=== PATIENT | female | born 1965 | race Caucasian/White ===

== ENCOUNTER 2020-08-08 08:56 | Outpatient (REF) | payer OTHER, SELFPAY ==
[2020-08-08 09:28] LABS: Hemoglobin 11.9 g/dl (12.0-16.0); Mean Corpuscular HGB Conc 31.3 g/dl (31.0-35.0); Mean Corpuscular Hemoglobin 27.2 pg (27.0-33.0); Mean Platelet Volume 10.5 fL (9.4-12.3); Platelet Count 307 X10*3/uL (160-400); Red Blood Count 4.37 X10*6/uL (4.20-5.50); Red Cell Distribution Width 14.6 % (11.0-16.0); White Blood Count 4.8 X10*3/uL (4.8-10.8)
[2020-08-08 09:51] LABS: Alanine Aminotransferase 19 U/L (0-31); Alkaline Phosphatase 73 U/L (39-117); Anion Gap 11 (12-20); Aspartate Amino Transferase 19 U/L (5-31); Bilirubin Total 0.3 mg/dL (0.0-1.0); Blood Urea Nitrogen 13 mg/dL (9-16); Calcium 8.8 mg/dL (8.4-10.2); Carbon Dioxide 31 mmol/L (22-29); Chloride 107 mmol/L (96-108); Cholesterol 207 mg/dL; Estimated Glomerular Filt Rate > 60; Glucose Fasting 112 mg/dL (60-99); HDL Cholesterol 43 mg/dL; LDL Cholesterol Calculated 150 mg/dl; Potassium 4.5 mmol/l (3.3-5.1); Sodium 144 mmol/L (135-145); Total Protein 6.9 g/dL (6.5-8.0); Triglycerides 70 mg/dL
[2020-08-08 10:03] LABS: Creatinine Urine 253.77 mg/dL; Microalbum/Creatinine Ratio Ur 5.9 ug/mg cr
[2020-08-08 10:12] LABS: TSH reflex Free T4 0.58 mIU/mL (0.32-4.0)
== END 2020-08-08 08:57 | disposition home or self-care (01) ==
LOC: HO.LAB 08:56
PROVIDERS: PCP Physician Assistant; Visit Provider Physician Assistant
DX: I10 Essential (primary) hypertension (principal); E03.9 Hypothyroidism, unspecified
CPT/HCPCS: 36415; 80053; 80061; 82043; 84443; 85027

== ENCOUNTER 2022-04-29 08:14 | Outpatient (REF) | payer BC, SELFPAY ==
[2022-04-29 09:12] LABS: Hematocrit 39.2 % (37.0-47.0); Hemoglobin 12.3 g/dl (12.0-16.0); Mean Corpuscular HGB Conc 31.4 g/dl (31.0-35.0); Mean Corpuscular Hemoglobin 27.3 pg (27.0-33.0); Mean Corpuscular Volume 87.1 fL (80.0-98.0); Mean Platelet Volume 10.7 fL (9.4-12.3); Platelet Count 277 X10*3/uL (160-400); Red Cell Distribution Width 14.8 % (11.0-16.0); White Blood Count 4.9 X10*3/uL (4.8-10.8)
[2022-04-29 10:05] LABS: Folate 11.2 ng/mL (> or = 4.0); Vitamin B12 182 pg/mL (200-900)
== END 2022-04-29 08:15 | disposition home or self-care (01) ==
LOC: HO.LAB 08:14
PROVIDERS: Visit Provider Physician Assistant
DX: E53.8 Deficiency of other specified B group vitamins (principal); R20.2 Paresthesia of skin
CPT/HCPCS: 36415; 82607; 82746; 85027

== ENCOUNTER 2022-08-15 11:10 | Outpatient (REF) | payer BC, SELFPAY ==
--- NOTE | ~2022-08-15 | MM_ITS ---
EXAMINATION: MM SCREENING DIGITAL BREAST TOMOSYNTHESIS, BILATERAL CLINICAL INFORMATION: Screening. Asymptomatic. The lifetime risk of breast cancer based on the Tyrer-Cuzick Model is 14%. COMPARISON: Outside mammography: 05/21/2012, 08/20/2008 ([facility]) TECHNIQUE: Digital breast tomosynthesis is performed in both the craniocaudal and mediolateral oblique views along with computer-aided detection (CAD). Synthesized 2D images are generated from the tomosynthesis. FINDINGS: The breasts are almost entirely fatty (ACR BI-RADS breast composition Category a). There are no significant masses, abnormal calcifications, or other abnormalities. Background stromal markings are normal. No developing density or architectural abnormality. Incidental tightly grouped dermal calcifications anterior inferior left breast. Incidental intramammary node posterior upper outer right breast again seen. The skin contours are smooth. No significant changes. MM/MM tomosynthesis screening BI IMPRESSION: No mammographic evidence of malignancy. ASSESSMENT: BI-RADS 2: Benign RECOMMENDATION: Routine annual mammography screening. This patient's information was entered into a reminder system with a target due date for their next mammogram.
== END 2022-08-15 11:11 | disposition home or self-care (01) ==
LOC: HO.MAMMO 11:10
PROVIDERS: PCP Physician Assistant; Visit Provider Physician Assistant
DX: Z12.31 Encounter for screening mammogram for malignant neoplasm of breast (principal)
CPT/HCPCS: 77063; 77067

== ENCOUNTER 2022-08-25 14:11 | Outpatient (REF) | payer BC, SELFPAY ==
--- NOTE | 2022-08-25 08:45 | EMG_ITS ---
Left tibial and peroneal motor studies were performed. Left superficial peroneal and sural sensory studies were performed. Tibial H-reflex was obtained, and median and lateral plantar sensory studies were performed. Needle examination was performed. IMPRESSION: 1. Left mid to lower lumbar radiculopathy. 2. 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 3. 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 MD GOMEZ Menjivar/TOSHIA / [id number]
== END 2022-08-25 14:12 | disposition home or self-care (01) ==
LOC: HO.NEURO 14:11
PROVIDERS: Visit Provider Physician Assistant
DX: R20.2 Paresthesia of skin (principal)
CPT/HCPCS: 95886; 95910

== ENCOUNTER → 2022-09-23 11:07 | Outpatient (BNVA) | payer BC, SELFPAY | PROVIDERS: PCP Physician Assistant; Visit Provider Nurse Practitioner Family | DX: Z13.89 Encounter for screening for other disorder (principal) ==

== ENCOUNTER 2022-11-28 08:00 | Outpatient (RCR) | payer BC, SELFPAY ==
--- NOTE | 2022-11-16 08:44 | MHC.PT.EP ---
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 Pt HAS A H/O DIMAS LEs VASCULAR PROCEDURE APPROX 2 YRS AGO. OBJECTIVELY, Pt HAS DECR POSTURAL AWARENESS, LIMITED TRUNK AND HIP AROM/ TIGHT PSOAS AND CALF MM, (+) THORACOLS PS MM TISSUE TENSION, AND INTERMITTENT DIMAS LB ACHINESS. SHE HAS DECR BARB TO SL, PHYSICALLY DEMANDING TASKS, BENDING, AND PROLONGED SITTING. SHE CURRENTLY DENIES SENSORIMOTOR DEFICITS. Pt WOULD BENEFIT FROM PT TO ADDRESS THE ABOVE FINDINGS, PAIN MGMT, DEV A HEP/SX MGMT STRATEGIES, AND IMPROVE HIP FLEXIBILITY FOR MORE EFFICIENT BODY MECHANICS. Frequency and Duration: The patient will be seen 2 x WK x 8 WKS Short Term Goals: *Pt INDEP W SELF-CORRECT POSTURE AND DEMON IMPROVED, MORE EFFICIENT BODY MECH W SIMUL ADLs/ WORK TASKS *DECR LBP TO 2-3/10 W REG ADLs/ WORK *IMPROVE HIP FLEXIBILITY AND TRUNK AROM * INTIATE HEP Group Home Goals: *Pt WILL IMPROVE LUMBOPELVIC/ LEs STRENGTH TO AT LEAST 5-/5 *Pt RESUME REG ADLs AND FITNESS ROUTINE EVIDENT W IMPROVED OSWESTRY SCORE (AT EVAL 50 ) *Pt INDEP W PROGR HEP AND SELF-SX MGMT TECHN Treatment Plan: Modalities to reduce pain, spasms and effusion. Manual therapy to restore motion and function. Therapeutic exercise to improve strength and flexibility. Neuromuscular re-education for posture and balance. Therapeutic activities to return to functional activities of daily living. Electronically signed by: DARY LAKE,PT Please sign and return to therapist. Thank you for your referral.
--- NOTE | 2023-02-03 13:36 | MHC.PT.DC ---
[facility] [place] Office [place] Office [place] Office [address] [phone] F: [phone] F: [phone] F: [phone] F: [phone] Physical Therapy Discharge Report Diagnosis: THORACOLUMBAR AND LUMBOSACRAL INTERVERTEBRAL DISC Date of Surgery: Date of Evaluation: 11/16/22 Date of Discharge: 02/03/23 Treatments to Date: 4 Cancellations to Date: 2 No Shows to Date: 1 Discharge Status: Improved Function Independent with HEP Patient Elected to Stop Discharge Summary: THE Pt BENEFITTED FROM PT TO ADDRESS POSTURE/ BODY MECH, EASE TISSUE TENSION AND DEV A HEP FOR LUMBOPELVIC STAB AND STRENGTH. SHE DID NOT ATTEND LAST FEW SCHED APPTS AND IS D/C PER DEPT POLICY. Electronically signed by: DARY LAKE,PT Please sign and return to therapist. Thank you for your referral.
== END 2023-02-03 13:37 | disposition home or self-care (01) ==
LOC: HO.PT 08:00
PROVIDERS: PCP Physician Assistant; Visit Provider Physician Assistant
DX: M51.9 Unspecified thoracic, thoracolumbar and lumbosacral intervertebral disc disorder (principal)
CPT/HCPCS: 97140; 97162; 97530

== ENCOUNTER 2022-11-28 08:43 | Outpatient (REF) | payer BC, SELFPAY ==
--- NOTE | ~2022-11-28 | MR_ITS ---
EXAMINATION: MR LUMBAR SPINE WITHOUT CONTRAST CLINICAL INFORMATION: Intervertebral disc disorder with radiculopathy, lumbar region. COMPARISON: None TECHNIQUE: MRI of the lumbar spine was obtained using routine sequences without contrast. FINDINGS: The lumbar vertebral bodies maintain normal heights and alignment. There is severe disc height loss at L4-L5 and L5-S1 mild amount of endplate edema is seen at L4-L5 and L5-S1. The distal spinal cord appears normal. The conus medullaris terminates normally at L2. Nonenlarged retroperitoneal lymph nodes are noted. The extraspinal soft tissues are otherwise unremarkable. SPINAL LEVELS: L1-L2: No posterior disc abnormality. No spinal canal or neural foraminal stenosis. L2-L3: No posterior disc abnormality. No spinal canal or neural foraminal stenosis. L3-L4: Disc bulging with central protrusion resulting in mild indentation the ventral thecal sac but no spinal canal stenosis. No neural foraminal stenosis. L4-L5: Disc bulging with left subarticular protrusion resulting in mild compression of the traversing left L5 nerve root. Mild to moderate facet arthropathy. No spinal canal stenosis. Mild to moderate bilateral neural foraminal stenosis. L5-S1: Disc bulging with moderate facet arthropathy. No spinal canal stenosis. Mild right and moderate left neural foraminal stenosis. MR/MR lumbar spine wo con IMPRESSION: 1. At L4-L5 there is left subarticular protrusion resulting in mild compression of the traversing left L5 nerve root. Mild to moderate bilateral neural foraminal stenosis. 2. At L5-S1 there is mild right and moderate left neural foraminal stenosis.
--- NOTE | ~2022-11-28 | XR_ITS ---
EXAMINATION: XR LUMBOSACRAL SPINE CLINICAL INFORMATION: Anemia. COMPARISON: Portions of the MRI lumbar spine dated 11/28/2022. TECHNIQUE: AP and lateral views of the lumbar spine and lateral view of the lumbosacral junction. FINDINGS: There is bony demineralization. There is a very mild T12 upper endplate compression fracture. At T11-T12, there is mild posterior disc space narrowing. At L4-L5, there is moderately severe disc space narrowing, vacuum disc phenomenon and a 3 mm retrolisthesis. There is moderately severe disc space narrowing at L5-S1, with slight vacuum disc phenomenon. No acute fracture or spondylolisthesis is seen. There is multi-level thoracolumbar spondylosis. The posterior elements are intact. The paravertebral soft tissues are unremarkable. XR/XR lumbar spine 2-3V IMPRESSION: 1. There is mild degenerative disc disease at T11-T12, and moderately severe degenerative disc disease is seen at L4-L5 and L5-S1. 2. There is a very mild T12 upper endplate compression fracture.
== END 2022-11-28 08:44 | disposition home or self-care (01) ==
LOC: HO.MRI 08:43
PROVIDERS: PCP Physician Assistant; Visit Provider Physician Assistant
DX: M51.16 Intervertebral disc disorders with radiculopathy, lumbar region (principal); D51.0 Vitamin B12 deficiency anemia due to intrinsic factor deficiency
CPT/HCPCS: 72100; 72148

== ENCOUNTER → 2023-01-03 14:26 | Outpatient (BNVA) | payer BC, SELFPAY | PROVIDERS: PCP Physician Assistant; Visit Provider Physician Assistant ==

== ENCOUNTER 2023-02-09 09:25 | Outpatient (AMB) | payer BC, SELFPAY ==
--- NOTE | 2023-02-09 09:27 | MHC.PC.OV ---
Vital Signs 02/09/23 09:28 Height 5 ft 1 in Weight 193 lb 2 oz BMI 36.5 BP 130/80 Blood Pressure Location Rt brachial Position Sitting Pulse 73 Pulse Source Pulse Oximeter Pulse Oximetry (%) 98 Intake Visit Reasons: 6mth f/u Intake Note: pt is here for 6 mon f/u Staff Development Manager Required: No Accompanied by: Self / Same As Patient Allergies lisinopril Allergy (Severe, Verified 02/09/23 09:35) Hives Medication List - Last Reconciled 02/09/23 by Mathew Fuller PA-C albuterol sulfate 90 mcg/actuation 1 puff PO QID amlodipine 5 mg PO DAILY 30 days bisacodyl (Dulcolax (bisacodyl)) 10 mg (2 x 5 mg) PO ONCE 1 day cyanocobalamin (vitamin B-12) 1,000 mcg IM Q4W 4 weeks epinephrine (EpiPen 2-Allan) 0.3 mg (0.3 mL) IM Q4H PRN 30 days levothyroxine 88 mcg PO DAILY montelukast (Singulair) 10 mg PO BEDTIME 30 days nebulizers (AeroEclipse II Nebulizer) As directed needle (disp) 22 G (CareTouch Hypodermic Needle) As directed polyethylene glycol 3350 (Miralax) 238 grams PO ONCE Tobacco use date assessed: 02/09/23 Dental Screening Dental Screen Date: 02/09/23 Did you have a dental visit in the last 12 months?: Yes Did you have a dental problem in the last 6 months where you did not have access to dental care?: No Was dental information given to patient?: Patient has dentist HPI 6m f/u HPI Details Patient is a 56-year-old female here today for routine annual physical. Patient has a past medical history significant for hypertension, obesity, impaired glucose metabolism, hypothyroidism , peripheral vascular disease. Concern--> awaiting to see licensed nuclear control room operator due to episodes of high formations thought to be due to his lisinopril adverse reaction. Will do RAST panel testing. Lumbar disc disease: Recent MRI showing L4-L5 disc herniation, has followed up with dispute specialist and will do surgery in March of 2023. Continues to have left lower extremity weakness, cramping and pain.? .. Pernicious anemia:? Has been started on IM injection B12 and feels her energy is much improved. .. Obesity:? Has lost weight since last office visit. Patient does understand her BMI is over 30 and will work on being more physically active and adapting to better eating habits to reduce her weight .. Hypertension:? Blood pressure acceptable today in office.? We have increased her lisinopril dose to 30 mg and blood pressure seems to be much better controlled. 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 Gabriel Acevedo, Jaky Rapp, Pieter King and colleagues, with an educational pattie from [employer]. Review of Systems Const Denies headache(s) Eyes Denies loss of vision ENT Denies vertigo, Denies dizziness, Denies headache(s) and Denies sore throat Card Denies chest pain, Denies leg edema and Denies lightheadedness Resp Denies cough, Denies hemoptysis and Denies wheezing GI Denies abdominal pain, Denies melena, Denies constipation, Denies diarrhea and Denies vomiting Denies urinary frequency, Denies dysuria and Denies urinary urgency Musc Denies arthralgias, Denies joint swelling, Denies numbness and Denies tingling Neuro Denies Abnormal speech present, Denies behavioral changes, Denies vertigo, Denies dizziness, Denies headache(s), Denies loss of vision, Denies memory loss, Denies numbness and Denies tingling Psych Denies anxiety, Denies behavioral changes, Denies depression, Denies memory loss and Denies panic attacks Jevon/Lymph Denies easy bleeding and Denies easy bruising Aller/Immun Denies wheezing Physical exam (Primary Care) Vital Signs: Last Vital Signs Pulse 73 02/09/23 09:28 BP 130/80 02/09/23 09:28 Pulse Ox 98 02/09/23 09:28 BMI result Body Mass Index 36.5 BMI Assessment/Plan discussion: High Tobacco/Smoking Status: Tobacco use Status Tobacco use date assessed 02/09/23 02/09/23 09:28 Patient Tobacco Use Status Never used Tobacco 02/09/23 09:28 Tobacco use type Cigarette 02/09/23 09:28 e-Cigarette/Vaping Use Never Used 02/09/23 09:28 Thrive Assessment: Date of Thrive Assessment Date Thrive assessed 08/03/22 02/09/23 09:28 Const Other: OBESE General: healthy appearing, no acute distress, alert and awake Nutritional Appearance: well nourished Orientation/consciousness: oriented to person, oriented to place and oriented to time HENMT Ears: TM's normal bilaterally General nose exam: Normal nasal mucous membranes and turbinates present Eyes Conjunctivae: conjunctivae normal Sclerae: sclerae normal Pupils: Equal, round and reactive pupils present Neck Neck: Yes no lymphadenopathy and Yes no JVD Thyroid: Thyroid normal Carotids: no bruits Resp Effort & Inspection: normal respiratory effort and not tachypneic Auscultation: no crackles, no rales, no rhonchi and no wheezes Cardio Rate: regular rate Rhythm: regular rhythm Heart sounds: no murmurs and normal S1 and S2 GI Palpation (GI): Soft to palpation, nontender, no hepatomegaly and no splenomegaly Auscultation: normal bowel sounds Skin General skin exam: no rashes or lesions noted and dry skin Neuro General: oriented to person, oriented to place and oriented to time Cranial nerves: Yes Equal, round and reactive pupils present Speech: No Abnormal speech present Gait exam (Neuro): Normal gait present Motor exam (neuro): no tremor noted Extrem Right upper extremity: full ROM Left upper extremity: full ROM Right lower extremity: full ROM; no edema Left lower extremity: full ROM; no edema Psych Mental Status: mental status grossly normal Speech and movement: Normal speech and movement present Affect: normal affect Attitude: cooperative Thought process: Normal thought process present Assessment and Plan Assessment & Plan (1) HTN (hypertension): Code(s): I10 - Essential (primary) hypertension Qualifiers: Hypertension type: primary hypertension Qualified Code(s): I10 - Essential (primary) hypertension Plan: Blood pressure acceptable today in office will continue current dose of amlodipine with goal blood pressure be below 140/90 (2) Hypothyroidism: Code(s): E03.9 - Hypothyroidism, unspecified Qualifiers: Hypothyroidism type: unspecified Qualified Code(s): E03.9 - Hypothyroidism, unspecified Plan: Patient continues on levothyroxine 88 mcg. TSH has been stable. Patient has lost weight since last office visit due to dietary changes. (3) Lumbar disc disease with radiculopathy: Code(s): M51.16 - Intervertebral disc disorders with radiculopathy, lumbar region Plan: Patient does have an L4-L5 disc herniation, continues to be symptomatic with left lower extremity cramping, weakness and pain. Has opted to do surgery in March of 2023. (4) Obese: Code(s): E66.9 - Obesity, unspecified Qualifiers: Obesity type: due to excess calories Obesity classification: adult class 2 (BMI 35 - 39.9) Serious obesity comorbidity presence: without serious comorbidity Body mass index: BMI 36.0-36.9 Qualified Code(s): E66.09 - Other obesity due to excess calories; Z68.36 - Body mass index [BMI] 36.0-36.9, adult Plan: Patient does understand her BMI is over 30 and has been working on dietary modifications and being more physically active to lose weight. Has lost a few lb since last office visit and I congratulated her on this. (5) Pernicious anemia: Code(s): D51.0 - Vitamin B12 deficiency anemia due to intrinsic factor deficiency Plan: Patient continues with monthly injections of B12. She reports her energy has come back. Will continue to fall B12 level. (6) Rpwcm-oywgz-bconthxmx: Code(s): T78.3XXA - Angioneurotic edema, initial encounter Qualifiers: Encounter type: sequela Qualified Code(s): T78.3XXS - Angioneurotic edema, sequela Plan: Patient has had multiple episodes of acute high formations and angioedema. Thought to be due to lisinopril which has been discontinued. Will do RAST panel testing Orders: Referrals Cologuard Test Z12.11 - Encounter for screening for malignant neoplasm of colon Medications: Changed From albuterol sulfate 90 mcg/actuation 1 puff PO QID 8.5 ea 1RF J45.30 - Mild persistent asthma, uncomplicated To albuterol sulfate 90 mcg/actuation 1 puff PO QID 30 days 8.5 ea 3RF J45.30 - Mild persistent asthma, uncomplicated From amlodipine 5 mg PO DAILY 30 days 30 tabs 3RF I10 - Essential (primary) hypertension To amlodipine 5 mg PO DAILY 90 days 90 tabs 1RF I10 - Essential (primary) hypertension Refilled levothyroxine 88 mcg PO DAILY 90 tabs 1RF E03.9 - Hypothyroidism, unspecified Coding Level of Care Code Est Pt Level 4 (89847) Diagnoses HTN (hypertension) I10 Hypertension type: primary hypertension Hypothyroidism E03.9 Hypothyroidism type: unspecified Lumbar disc disease with radiculopathy M51.16 Obese E66.09; Z68.36 Obesity type: due to excess calories Obesity classification: adult class 2 (BMI 35 - 39.9) Serious obesity comorbidity presence: without serious comorbidity Body mass index: BMI 36.0-36.9 Pernicious anemia D51.0 Uzeam-pzvxh-dnvykprwk T78.3XXS Encounter type: sequela
[2023-02-09 09:28] VITALS: BP 130/80; PULSE 73; O2SAT 98; BMI 36.5
== END 2023-02-09 10:03 | disposition home or self-care (01) ==
PROVIDERS: PCP Physician Assistant; Visit Provider Physician Assistant
DX: I10 Essential (primary) hypertension (principal); E03.9 Hypothyroidism, unspecified; Z68.36 Body mass index [BMI] 36.0-36.9, adult; E66.09 Other obesity due to excess calories; M51.16 Intervertebral disc disorders with radiculopathy, lumbar region; D51.0 Vitamin B12 deficiency anemia due to intrinsic factor deficiency; T78.3XXS Angioneurotic edema, sequela
CPT/HCPCS: 99214

== ENCOUNTER 2023-04-13 09:52 | Day surgery (SDC) | payer BC, SELFPAY ==
--- NOTE | 2023-03-23 | ECG_ITS ---
Test Reason : preop Blood Pressure : / mmHG Vent. Rate : 052 BPM Atrial Rate : 052 BPM P-R Int : 152 ms QRS Dur : 088 ms QT Int : 458 ms P-R-T Axes : 012 -02 014 degrees QTc Int : 425 ms Sinus bradycardia Otherwise normal ECG When compared with ECG of 16-DEC-2019 14:24, No significant change was found Referred By: Nadia Lang Electronically Signed By:EDSON BARONE
[2023-03-23 12:17] VITALS: BMI 36.3
[2023-03-23 12:26] VITALS: BP 166/79; PULSE 60; RESP 18; O2SAT 98
--- NOTE | 2023-03-23 12:47 | P.CONAN_ITS ---
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 Hx Asthma. Flares with allergies. Albuterol every other week. DVT post vein stripping years ago PONV PMFSH Active Problems Active Problems: All Active Problems (Updated 03/23/23 @ 12:09 by Elvia Monzon RN) HTN (hypertension) (Acute) Otitis media (Acute) Hypothyroidism (Acute) Impaired glucose metabolism (Acute) Peripheral vascular disease of lower extremity (Acute) Left leg paresthesias (Acute) Obese (Acute) Pernicious anemia (Acute) Asthma (Acute) Lumbar disc disease with radiculopathy (Acute) Breast cancer screening (Acute) Colon cancer screening (Acute) Annual physical exam (Acute) [id number] (Acute) Anaphylactic reaction (Acute) Neuralgia of left peroneal nerve (Acute) Past Medical History Medical History Blood clot in vein Arthritis Numbness Impaired glucose metabolism Obesity Thyroid disease Anemia PVD (peripheral vascular disease) Asthma HTN (hypertension) Family History Family History Mother Creutzfeldt Missael disease Maternal Aunt Breast cancer Family history of problems with anesthesia: Yes (Mother has PONV) Surgical History Surgical History Hx of vein stripping Hx of bilateral breast reduction surgery History of Problems with Anesthesia: Yes (PONV) Social History Social History Housing: House Are you a primary medicare sales representative to a significant other at home: No Do you presently have visiting nurse or other home services: No Alcohol intake: current Alcohol intake frequency: does not drink Patient Tobacco Use Status: Never used Tobacco Tobacco use type: Cigarette e-Cigarette/Vaping Use: Never Used Second Hand Smoke Exposure: No Use of substances other than those prescribed or required for medical reasons: No Have you been hit, kicked, punched, or otherwise hurt by someone within the past year? 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 Cognitive needs: No Hearing needs: No Vision needs: Yes Meds Allergies Allergy/AdvReac Type Severity Reaction Status Date / Time lisinopril Allergy Severe Hives Verified 02/09/23 09:35 Home Medications Medication Instructions Recorded Confirmed Last Taken Type albuterol sulfate 90 mcg/actuation 1 puff PO QID PRN Shortness Of 03/23/23 03/23/23 03/22/23 History aerosol inhaler Breath Or Wheezing Exam Exam Date and Time: March 23, 2023 1247 Height,Weight and Vital Signs: Height 5 ft 1 in Weight 87.09 kg Last Vital Signs Pulse 60 03/23/23 12:26 Resp 18 03/23/23 12:26 BP 166/79 H 03/23/23 12:26 Pulse Ox 98 03/23/23 12:26 O2 Del Method Room Air 03/23/23 12:26 Airway Mallampati Class: II TM Dist: >3cm Neck ROM: Full Loose/Missing/Broken Teeth: Yes (2 x permanent bridges upper, right lower implant post) Heart: RRR Lungs: CTAB Assessment and Plan Assessment Anesthesia Assessment: Anesthesia Plan Discussed and PAT Visit Final Anesthetic Review Family History of Problems with Anesthesia: Yes (Mother has PONV) History of Problems with Anesthesia: Yes (PONV) Documented by User: Britta Gaffney MD 04/13/23 12:43 [facility] Active Problems Active Problems: All Active Problems (Updated 04/13/23 @ 12:24 by Britta Gaffney MD) HTN (hypertension) (Acute) Otitis media (Acute) Hypothyroidism (Acute) Impaired glucose metabolism (Acute) Peripheral vascular disease of lower extremity (Acute) Left leg paresthesias (Acute) Obese (Acute) Pernicious anemia (Acute) Asthma (Acute) Lumbar disc disease with radiculopathy (Acute) Breast cancer screening (Acute) Colon cancer screening (Acute) Annual physical exam (Acute) Inxpb-[id number]-[id number] (Acute) Anaphylactic reaction (Acute) Neuralgia of left peroneal nerve (Acute) Past Medical History Medical History Blood clot in vein Arthritis Numbness Impaired glucose metabolism Obesity Thyroid disease Anemia PVD (peripheral vascular disease) Asthma HTN (hypertension) Family History Family History Mother Creutzfeldt Missael disease Maternal Aunt Breast cancer Surgical History Surgical History Hx of vein stripping Hx of bilateral breast reduction surgery Social History Social History Housing: House Are you a primary medicare sales representative to a significant other at home: No Do you presently have visiting nurse or other home services: No Alcohol intake: current Alcohol intake frequency: does not drink Patient Tobacco Use Status: Never used Tobacco Tobacco use type: Cigarette e-Cigarette/Vaping Use: Never Used Second Hand Smoke Exposure: No Use of substances other than those prescribed or required for medical reasons: No Have you been hit, kicked, punched, or otherwise hurt by someone within the past year? 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 Cognitive needs: No Hearing needs: No Vision needs: Yes Meds Allergies Allergy/AdvReac Type Severity Reaction Status Date / Time lisinopril Allergy Severe Hives Verified 02/09/23 09:35 Home Medications Medication Instructions Recorded Confirmed Last Taken Type albuterol sulfate 90 mcg/actuation 1 puff PO QID PRN Shortness Of 03/23/23 03/23/23 03/22/23 History aerosol inhaler Breath Or Wheezing Exam Height,Weight and Vital Signs: Height 5 ft 1 in Weight 87.09 kg Last Vital Signs Pulse 60 03/23/23 12:26 Resp 18 03/23/23 12:26 BP 166/79 H 03/23/23 12:26 Pulse Ox 98 03/23/23 12:26 O2 Del Method Room Air 03/23/23 12:26 Vital Signs Temp Pulse Resp BP Pulse Ox O2 Del Method 04/13/23 10:10 97 F 56 20 147/74 H 97 Room Air Pertinent Lab Results Pertinent Lab Results: Lab Results 03/23/23 03/23/23 04/13/23 Range/Units 13:20 13:29 10:50 WBC 6.7 (4.8-10.8) X10*3/uL RBC 4.85 (4.20-5.50) X10*6/uL Hgb 13.0 (12.0-16.0) g/dl Hct 41.0 (37.0-47.0) % MCV 84.5 (80.0-98.0) fL MCH 26.8 L (27.0-33.0) pg MCHC 31.7 (31.0-35.0) g/dl RDW 14.6 (11.0-16.0) % Plt Count 315 (160-400) X10*3/uL MPV 11.1 (9.4-12.3) fL Absolute Nucleated RBC 0.000 (0.0-0.012) X10*3/uL Nucleated RBC % (auto) 0.0 (0.0-0.2) /100WBC Sodium 143 (135-145) mmol/L Potassium 4.4 (3.3-5.1) mmol/L Chloride 107 (96-108) mmol/L Carbon Dioxide 28 (22-29) mmol/L Anion Gap 12 (12-20) BUN 10 (9-16) mg/dL Creatinine 0.94 (0.5-1.4) mg/dL Estim Creat Clear Calc 65.4 Estimated GFR > 60 Fasting Glucose 98 (60-99) mg/dL Calcium 9.5 D (8.4-10.2) mg/dL Total Bilirubin 0.4 (0.0-1.0) mg/dL AST 19 (5-31) U/L ALT 17 (0-31) U/L Alkaline Phosphatase 125 H (39-117) U/L Total Protein 7.6 (6.5-8.0) g/dL Albumin 4.2 (3.5-5.0) g/dL Triglycerides 91 (<150) mg/dL Cholesterol 222 H (<200) mg/dL LDL Cholesterol, Calc 156 H (<100) mg/dL HDL Cholesterol 48 (>40) mg/dL TSH 1.17 (0.32-4.0) uIU/mL Urine Creatinine 120.94 mg/dL Urine Microalbumin 6.0 mg/L Microalb/Creat Ratio 4.9 (<30) ug/mg cr Blood Type A Positive Antibody Screen NEGATIVE Airway Mallampati Class: III Assessment and Plan Final Anesthetic Review NPO: Yes ASA Class: III Final Preanesthetic Review: No Changes in Pt Med Stat, Meds/Allgs Chart Reviewed, Consent Obtained/Reviewed and Anes Risks/Benef Reviewed Patient Risk: Intermediate Procedure Risk: Intermediate Assessment/Block/Sedation in SS: Assess/Block/Sedation-SS Anesthetic Plan Anesthetic Plan: GA Disposition: Standard PACU
[2023-03-23 14:51] LABS: Mean Corpuscular HGB Conc 31.7 g/dl (31.0-35.0); Mean Corpuscular Hemoglobin 26.8 pg (27.0-33.0); Mean Corpuscular Volume 84.5 fL (80.0-98.0); Mean Platelet Volume 11.1 fL (9.4-12.3); Platelet Count 315 X10*3/uL (160-400); Red Blood Count 4.85 X10*6/uL (4.20-5.50); Red Cell Distribution Width 14.6 % (11.0-16.0); White Blood Count 6.7 X10*3/uL (4.8-10.8)
[2023-03-23 16:01] LABS: Creatinine Urine 120.94 mg/dL; Microalbum/Creatinine Ratio Ur 4.9 ug/mg cr (<30)
[2023-03-23 16:58] LABS: Alanine Aminotransferase 17 U/L (0-31); Albumin Level 4.2 g/dL (3.5-5.0); Alkaline Phosphatase 125 U/L (39-117); Anion Gap 12 (12-20); Aspartate Amino Transferase 19 U/L (5-31); Bilirubin Total 0.4 mg/dL (0.0-1.0); Blood Urea Nitrogen 10 mg/dL (9-16); Calcium 9.5 mg/dL (8.4-10.2); Carbon Dioxide 28 mmol/L (22-29); Chloride 107 mmol/L (96-108); Cholesterol 222 mg/dL (<200); Creatinine Clr Calc Pharmacy 65.4; Estimated Glomerular Filt Rate > 60; Glucose Fasting 98 mg/dL (60-99); HDL Cholesterol 48 mg/dL (>40); LDL Cholesterol Calculated 156 mg/dL (<100); Potassium 4.4 mmol/L (3.3-5.1); Sodium 143 mmol/L (135-145); Total Protein 7.6 g/dL (6.5-8.0); Triglycerides 91 mg/dL (<150)
[2023-03-23 17:21] LABS: TSH reflex Free T4 1.17 uIU/mL (0.32-4.0)
[2023-04-13] VITALS (9 sets, daily range): BP systolic 147–176; BP diastolic 74–92; PULSE 54–87; RESP 16–23; TEMP 36.1–36.6; O2SAT 97–99
--- NOTE | ~2023-04-13 | FL_ITS ---
EXAMINATION: XR FLUOROSCOPY WITH IMAGES CLINICAL INFORMATION: L4-L5 lumbar laminectomy, left. COMPARISON: None available. TECHNIQUE: Fluoroscopy Supervised By: Dr. Troy Blas. Fluoroscopy Time: 0.0 minutes. Cumulative Dose: 1.26 mGy. DAP: 0.0166 Gycm2. Images: 1. FINDINGS: Image demonstrates surgical instruments projecting over the posterior elements at the L4-5 disc space level. FL/FL guidance in OR IMPRESSION: Fluoroscopy for pain management procedure.
--- NOTE | 2023-04-13 07:23 | MHC.SHP ---
Pre-Procedural Eval Section A Date of Service: 04/13/23 Section B Chief Complaint: Intervertebral disc disorders with radiculopathy, Allergies: Allergies Allergy/AdvReac Type Severity Reaction Status Date / Time lisinopril Allergy Severe Hives Verified 02/09/23 09:35 Review of Systems Sugical H&P ROS: Negative: Constitution, Cardiovascular, Respiratory, Neurological, Psychiatric, Hem-Onc, Allergic/Immunologic, Gastrointestinal, Genitourinary, Musculoskeletal, Integumentary, Endocrine and Eyes/Ears/Nose/Throat Exam Surgical H&P Exam: Not Evaluated: HEENT, Not Evaluated: Heart, Not Evaluated: Lungs, Not Evaluated: Extremities, Not Evaluated: Abdomen, Not Evaluated: Skin and Not Evaluated: Neurological Plan Diagnosis/Plan: Unchanged I have reviewed the history and physical and performed a pertinent physical examination on my patient. No changes have occurred unless specified. Left L4-5 decompression. Time Spent With Patient Time: Total time managing care of this patient today _10___ minutes.
[2023-04-13] MEDS: Gabapentin 300 MG CAPSULE PO (10:25)
[2023-04-13] MEDS: methocarbamoL 750 MG TABLET PO (10:25)
[2023-04-13] MEDS: Lactated Ringers 1,000 ML 100 ML IVCONT (10:29)
[2023-04-13] MEDS: Scopolamine 1.5 MG PATCH.TD.3 TRANSDERMA (10:29)
--- NOTE | 2023-04-13 14:09 | W.PM.OPN ---
Operative Note Operative Note Date of Service: 04/13/23 Narrative: Preoperative Diagnosis: Spinal stenosis/lateral recess stenosis Operation: Left L4-5 Laminotomy, Partial facetectomy with use of microscope Consent Informed Consent was obtained for this operation. I have explained the nature, purpose and benefits of the operation. I have discussed the risks and benefit of the operation including possible complications or adverse events with patient/family. Alternative(s) were discussed with the patient with their relative benefits and risks as well as the consequences of not accepting the operation were included in obtaining consent. Surgeon: DEVANG PIZANO MD, PHD Procedure Assisted By: Lalita Bob Description of Procedure this 57-year-old female is suffer from left lumbar radiculopathy. MRI shows lateral recess stenosis L4-5 compressing the L5 nerve root. The patient was offered a decompression of the nervous structures. The procedure complications were explained. The patient was consented. The patient was brought to the operating room and endotracheally intubated. The patient was turned in prone position on the Segundo frame. Prep and drape was done followed by timeout. Physician visual merchandising assistant provided access. A mid lumbar incision was made followed by release of the paravertebral muscle on the Left side to expose the L4-5lamina and facet joint. An intraoperative x-ray was obtained to confirm the correct level. The microscope was brought in. I took over the procedure. The high-speed drill was used to do a [] laminotomy. #2 Kerrison was used to further remove the lamina towards the [] foramen. With a nerve hook the medial wall of the L5 pedicle was palpated as well as the beginning of the L5 foramen. a partial facetectomy was done. The nerve root was retracted medially and the disc space was suspected as well. A calcified disc bulge was palpated. The L5 nerve root was decompressed of his trajectory in the lateral recess. No foraminal stenosis was present and therefore a foraminotomy was not performed. A long the nerve root could be easily passed, along the trajectory of the nerve root as a sign of decompression of the nerve root . The microscope was removed. Hemostasis was done. Incision was closed in 2 layers. Steri-Strips were used to approximate incision. An OpSite with Tegaderm was used to cover the incision. All sponge needle counts were correct. Patient was extubated and transported in stable is to recovery room. Anesthesia: General Estimated Blood Loss (ml): Minimal Duration of Surgery: Under 60 Minutes Postoperative Plan: Discharge to home
--- NOTE | 2023-04-13 14:28 | P.DS_ITS ---
DS: Providers Provider Date of Service: 04/13/23 Primary care physician: Mathew Fuller PA-C DS: Summary Time Spent with Patient Time attestation: Total time managing care of this patient today ____ minutes. Discharge coordination time: Less than 30 minutes Quality: Safe Use of Opioids Does Pt have an Active Cancer Diagnosis on the Problem List?: No Quality: Stroke Does the patient have a stroke diagnosis?: No Physical Exam Vital Signs: Vital Signs: Last Vital Signs Temp 97 F 04/13/23 10:10 Pulse 56 04/13/23 10:10 Resp 20 04/13/23 10:10 BP 147/74 H 04/13/23 10:10 Pulse Ox 97 04/13/23 10:10 O2 Del Method Room Air 04/13/23 10:10 BMI result Body Mass Index 36.3 DS: Data Data Completed and Pending Labs on day of discharge: Laboratory Results - last 24 hr 04/13/23 10:50 Blood Type A Positive Antibody Screen NEGATIVE Discharge Plan Discharge Patient Disposition: Home, Self-Care Referrals: Mathew Fuller PA-C [Primary Care Provider] - 1 Week Discharge Medications: New oxycodone 5 mg tablet 5 mg PO Q6H PRN (Reason: moderate-severe pain) Qty: 20 0RF Rx Instructions: Partial Fill upon patient request. Continued cyanocobalamin (vitamin B-12) 1,000 mcg/mL solution 1,000 mcg IM Q4W 28 Days Qty: 1 4RF epinephrine [EpiPen 2-Allan] 0.3 mg/0.3 mL auto-injector 0.3 mg IM Q4H PRN (Reason: anaphylaxis) 30 Days Qty: 2 0RF albuterol sulfate 90 mcg/actuation HFA aerosol inhaler 1 puff PO QID PRN (Reason: Shortness Of Breath Or Wheezing) (DME) CareTouch Hypodermic Needle 22 gauge x 1 needle See Rx Instructions .Route Qty: 100 0RF Rx Instructions: As directed (DME) nebulizers [AeroEclipse II Nebulizer] Misc See Rx Instructions .Route Qty: 1 0RF Rx Instructions: As directed levothyroxine 88 mcg tablet 88 mcg PO DAILY Qty: 90 1RF amlodipine 5 mg tablet 5 mg PO DAILY 90 Days Qty: 90 1RF Discharge Orders: Discharge Order (Routine); Ordered 04/13/23 Ordered By: Víctor Mendoza Diet: Advance to usual diet Activity on Discharge: As tolerated Activity Restrictions/Additional Instructions: After your spinal surgery we ask you to observe the following restrictions/guidelines: Activity: It is normal to feel some discomfort as you increase your activity, but that will improve with time. We ask you avoid heavy lifting or acitivities that cause pain. As a general rule, 8lbs is a safe limit for lifting right after surgery. Walk as much as you feel comfortable but not to exhaustion. You will feel extra tired the first few days after surgery. Stay well hydrated. It is OK to walk up and down stairs You may return to driving when you are off narcotics (such as vicodin, oxycodone, dilaudid, etc), and you are back to normal functional capacity. If you have any concerns please check with office before driving. Return to work is specific to each patient and each surgery, so please speak wit h your doctor/PA at first follow up. Please bring paperwork such as FMLA at that time if you need it filled out. Medications: We will give you a short supply of narcotics after surgery (usually one weeks worth). If you need more please call the office but do not use more than prescribed. You will need to give our office 48 hours notice if you need narcotics refilled and we do not fill narcotics on weekends or evenings. If you are on a narcotic, it is a good idea to take a stool softener such as colace or senna to avoid constipation If you take blood thinner such as aspirin, Plavix, Coumadin, Effient, Eliquis etc for conditions such as Afib, DVT, Pulmonary embolus, coronary disease, stents etc please speak with your surgeon about specific details as to when you can resume these medications. You can resume NSAIDs on post op day 1 (eg: Motrin, Naproxen, etc). Follow up: Please call the office, , after surgery to arrange a 3 week follow up for wound check. Wound Care: You may remove your dressing on the first day after surgery. You may leave open to air. Please do not remove the steri strips underneath. they will fall off on their own in one week. IT IS NORMAL FOR THE WOUND TO OOZE OR BE BLOODY FOR A FEW DAYS AFTER SURGERY. IF THIS HAPPENS JUST PLACE NEW DRESSING OVER IT TO AVOID STAINING CLOTHES. You may shower on post op day # 1 We ask that you do not let the water soak the wound. If it does get wet, just towel dry lightly. Please do not scrub your incision or place any type of chemical/ointment on the wound. No tub baths, pools or jacuzzis for one month. If you have any leaking or redness from your wound, or fevers, please call the office.
[2023-04-13] MEDS: HYDROmorphone HCl 0.5 MG/0.5 ML SYRINGE 0.25 MG IVPUSH (15:10)
[2023-04-13] MEDS: oxyCODONE HCl Immed Release 5 MG TABLET PO (15:13)
== END 2023-04-13 16:23 | disposition home or self-care (01) ==
PROVIDERS: PCP Physician Assistant; Visit Provider Neurological Surgery
PROC: (CPT 63047; principal; 2023-04-13 12:30)
DX: M51.16 Intervertebral disc disorders with radiculopathy, lumbar region (principal); I10 Essential (primary) hypertension; R73.02 Impaired glucose tolerance (oral); I73.9 Peripheral vascular disease, unspecified; J45.30 Mild persistent asthma, uncomplicated; D51.0 Vitamin B12 deficiency anemia due to intrinsic factor deficiency; E66.09 Other obesity due to excess calories; Z68.36 Body mass index [BMI] 36.0-36.9, adult; Z86.718 Personal history of other venous thrombosis and embolism; Z79.899 Other long term (current) drug therapy; Z88.8 Allergy status to other drugs, medicaments and biological substances
CPT/HCPCS: 63047; 36415; 80053; 80061; 82043; 84443; 85027; 86850; 86900; 86901; 93005; J0131; J0690; J1100; J1170; J1885; J2250; J2405; J2550; J3010

== ENCOUNTER → 2023-04-13 09:52 | Outpatient (BNV) | payer BC, SELFPAY | PROVIDERS: PCP Physician Assistant; Visit Provider Neurological Surgery | DX: M48.061 Spinal stenosis, lumbar region without neurogenic claudication (principal) | CPT/HCPCS: 63047; 99499 ==

== ENCOUNTER 2023-05-09 13:05 | Outpatient (AMB) | payer BC, SELFPAY ==
--- NOTE | 2023-05-09 13:19 | HO.SPINEOV ---
Intake Intake Visit Reasons: 1st post op Intake Note: Ms. Muñoz is here today for her 1st post-op visit. Corporate Security Officer Required: No Allergies lisinopril Allergy (Severe, Verified 02/09/23 09:35) Hives Assessment & Plan Assessment & Plan (1) Status post lumbar spine surgery for decompression of spinal cord: Code(s): Z98.890 - Other specified postprocedural states Plan Procedure: Left L4-5 Laminectomy Lis comes in today for her 1st postoperative visit. She reports she is very satisfied with the surgery and feels much better than she did pre-operatively. The patient reports she is up walking around and completing the majority of her ADLs. She reports that she no longer suffers from her left-sided shooting radiculopathy during the day, but does feel that she still gets some residual pains in her left lower extremity after days where she feels she is more active. 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 She is encouraged to continue taking an easy, and refrain from doing any significant manual labor until we see her again at her 2nd postoperative appointment. Full strength 5/5 UE / LE. Mobility is intact. Sensation grossly intact. Patient is able to ambulate well, rises from a seated position without difficulty. Incision sites are closed, well healing, with no signs of drainage. We will follow-up with the patient in 6 weeks for her 2nd postoperative visit. Víctor Blas MD,PhD [facility] Coding Level of Care Code Global (47390) Diagnoses Status post lumbar spine surgery for decompression of spinal cord Z98.890
== END 2023-05-09 13:34 | disposition home or self-care (01) ==
PROVIDERS: PCP Physician Assistant; Visit Provider Physician Assistant
DX: Z98.890 Other specified postprocedural states (principal)
CPT/HCPCS: 99024

== ENCOUNTER → 2023-05-09 13:05 | Outpatient (BNVA) | payer BC, SELFPAY | PROVIDERS: PCP Physician Assistant; Visit Provider Physician Assistant ==

== ENCOUNTER 2023-06-20 13:24 | Outpatient (AMB) | payer BC, SELFPAY ==
--- NOTE | 2023-06-20 13:32 | HO.SPINEOV ---
Intake Intake Visit Reasons: 2nd post op Intake Note: Ms. Muñoz is here today for her 2nd post-op visit. Back Grinder Required: No Allergies lisinopril Allergy (Severe, Verified 02/09/23 09:35) Hives Assessment & Plan Assessment & Plan (1) Status post lumbar spine surgery for decompression of spinal cord: Onset Date: ~06/20/23 Code(s): Z98.890 - Other specified postprocedural states Plan Procedure: Left L4-5 Laminectomy Lis comes in today for her 2nd postoperative visit. She reports she continues to feel satisfied with surgery. 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 She reports that she still does get some residual pains in her left lower extremity after days where she feels she is more active, however overall she continues to feel pain free on a daily basis. She was encouraged to remain active, but do not push herself beyond that she feels like her limits are. No neurological deficit. Patient is able to ambulate well, rises from a seated position without difficulty. Incision sites are closed, well healing, with no signs of drainage. The patient may follow up on an as-needed basis going forward. Víctor Blas MD,PhD [facility] Coding Level of Care Code Global (33533) Diagnoses Status post lumbar spine surgery for decompression of spinal cord Z98.890
== END 2023-06-20 14:08 | disposition home or self-care (01) ==
PROVIDERS: PCP Physician Assistant; Visit Provider Physician Assistant
DX: Z98.890 Other specified postprocedural states (principal)
CPT/HCPCS: 99024

== ENCOUNTER → 2023-06-20 13:24 | Outpatient (BNVA) | payer BC, SELFPAY | PROVIDERS: PCP Physician Assistant; Visit Provider Physician Assistant ==

== ENCOUNTER 2023-08-10 10:03 | Outpatient (AMB) | payer BC, SELFPAY ==
[2023-08-10 10:22] VITALS: BP 140/82; PULSE 65; RESP 17; O2SAT 97; BMI 36.9
--- NOTE | 2023-08-10 10:22 | A.OFFPC_ITS ---
Vital Signs 08/10/23 10:22 Height 5 ft 0.63 in Weight 193 lb BMI 36.9 BP 140/82 H Blood Pressure Location Lt brachial Position Sitting Respiration 17 Pulse 65 Pulse Source Pulse Oximeter Pulse Oximetry (%) 97 Oxygen Delivery Method Room Air Intake Visit Reasons: Annual exam Intake Note: Patient is here today for a physical. Editorial Assistant Required: No Accompanied by: Self / Same As Patient Allergies lisinopril Allergy (Severe, Verified 08/10/23 10:53) Hives Medication List - Last Reconciled 08/10/23 by Mathew Fuller PA-C albuterol sulfate 90 mcg/actuation 1 puff PO QID PRN amlodipine 5 mg PO DAILY 90 days cyanocobalamin (vitamin B-12) 1,000 mcg IM Q4W 4 weeks epinephrine (EpiPen 2-Allan) 0.3 mg (0.3 mL) IM Q4H PRN 30 days levothyroxine 88 mcg PO DAILY nebulizers (AeroEclipse II Nebulizer) As directed needle (disp) 22 G (CareTouch Hypodermic Needle) As directed oxycodone 5 mg PO Q6H PRN Tobacco use date assessed: 08/10/23 Dental Screening Dental Screen Date: 08/10/23 Did you have a dental visit in the last 12 months?: Yes Did you have a dental problem in the last 6 months where you did not have access to dental care?: No Was dental information given to patient?: Patient has dentist HPI Annual exam HPI Details Patient is a 57-year-old female here today for a PE Patient has a past medical history significant for hypertension, obesity, impaired glucose metabolism, asthma, hypothyroidism , peripheral vascular disease. .. Asthma: She has been noting worsening asthma symptoms as of late. She does reports she would like to be evaluated for obstructive sleep apnea as she had been told she has apneic episodes and loud snoring. She does have high risk factors for obstructive sleep apnea. She is interested in starting a nebulizer for p.r.n. use Lumbar disc disease: Did have lumbar disc surgery in May of 2023. She reports significant improvement in her pain and lower extremity radiculopathy. She is happy with the results.? .. Pernicious anemia:? Has been started on IM injection B12 and feels her energy is much improved. .. Obesity:? Has lost a small amount of weight since last office visit Patient does understand her BMI is over 30 and will work on being more physically active and adapting to better eating habits to reduce her weight PLAN: Interested in starting GLP 1 for weight loss, thus will start Wegovy .. Hypertension:? Blood pressure slightly elevated today in office..? Amlodipine 5 mg. We anticipate better blood pressure control with weight loss. Colonoscopy: Has Cologuard at home, has yet to have completed VAccine: UTD with COVID vaccine, declines flu , need PCV Mammo: Gets mammogram in July, has upcoming appointment DIRECTOR OF RECRUITMENT AND ADMISSIONS : Followed by geospatial intelligence analyst [facility] Medical History (Updated 08/10/23 @ 13:20 by Mathew Fuller PA-C) Peripheral vascular disease of lower extremity Blood clot in vein Arthritis Numbness Impaired glucose metabolism Obesity Thyroid disease Anemia PVD (peripheral vascular disease) Asthma HTN (hypertension) Surgical History Hx of vein stripping Hx of bilateral breast reduction surgery Family History Mother Creutzfeldt Missael disease Maternal Aunt Breast cancer Social History Housing: House Are you a primary hearing care practitioner to a significant other at home: No Do you presently have visiting nurse or other home services: No Alcohol intake: current Alcohol intake frequency: does not drink Patient Tobacco Use Status: Never used Tobacco Tobacco use type: Cigarette e-Cigarette/Vaping Use: Never Used Second Hand Smoke Exposure: No service: No Current occupational status: employed 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 1. Little interest or pleasure in doing things: not at all 2. Feeling down, depressed, or hopeless: not at all 3. Trouble falling or staying asleep, or sleeping too much: not at all 4. Feeling tired or having little energy: not at all 5. Poor appetite or overeating: not at all 6. Feeling bad about yourself - or that you are a failure or have let yourself or your family down: not at all 7. Trouble concentrating on things, such as reading the newspaper or watching television: not at all 8. Moving or speaking so slowly that other people could have noticed. Or the opposite - being so fidgety or restless that you have been moving around a lot more than usual: not at all 9. Thoughts that you would be better off or of hurting yourself in some way: not at all Total score: 0 Depression Screening Interpretation: Negative Depression Screening Done: Yes 22744 - PHQ-9 Billing: Yes Source: Developed by Drs. Gabriel Acevedo, Jaky Rapp, Pieter King and colleagues, with an educational pattie from [employer]. Thrive Questionnaire Date Thrive assessed: 08/10/23 I am a: Patient What is your living situation today?: I have a steady place to live Within the past 12 months, did the food you bought not last and you didn't have the money to get more?: Never true Within the past 12 months, did you worry whether your food would run out before you got money to buy more?: Never true Do you have trouble paying for medicines?: No Do you have trouble getting transportation to medical appointments?: No Do you have trouble paying your heating and electricity bill?: No Do you have trouble taking care of your child, family member or friend?: No Do you have trouble with day-to-day activities such as bathing, preparing meals, shopping, managing finances, etc.?: No Are you currently unemployed and looking for a job?: No Are you interested in more education?: No Please select the resources that you would like help with: None Currently or been in a relationship where the following occur: no concerns reported AUDIT C Alcohol Use Questionnaire (AUDIT-C) 1. How often do you have a drink containing alcohol?: Monthly or less 2. How many drinks containing alcohol do you have on a typical day when you are drinking?: 1 or 2 3. How often do you have six or more drinks on one occasion?: Never Total Score: 1 LOIS-7 AMB Questionnaire LOIS-7 Date LOIS - 7 assessed: 08/10/23 Feeling nervous, anxious, or on edge: 0 = Not at all Not being able to stop or control worryin = Not at all Worrying too much about different things: 0 = Not at all Trouble relaxin = Not at all Being so restless that it is hard to sit still: 0 = Not at all Becoming easily annoyed or irritable: 0 = Not at all Feeling afraid as if something awful might happen: 0 = Not at all Total LOIS-7 score (0-4 normal; 5-9 mild; 10-14 moderate; 15-21 severe): 0 Source: Developed by Drs. Gabriel Acevedo, Jaky Rapp, Pieter King and colleagues, with an educational pattie from [employer]. LOIS-7 Assessment Billing LOIS-7 Assessment Tool: LOIS-7 Assessment 39771 Review of Systems Const Denies excessive sweating, Denies fatigue and Denies headache(s) Eyes Denies loss of vision ENT Denies vertigo, Denies dizziness, Denies headache(s) and Denies sore throat Card Denies chest pain, Denies leg edema and Denies lightheadedness Resp Denies cough, Denies hemoptysis and Denies wheezing GI Denies abdominal pain, Denies melena, Denies constipation, Denies diarrhea and Denies vomiting Denies urinary frequency, Denies dysuria and Denies urinary urgency Musc Denies arthralgias, Denies joint swelling, Denies numbness and Denies tingling Skin/Breast Denies rash and Denies skin ulcer Neuro Denies Abnormal speech present, Denies behavioral changes, Denies vertigo, Denies dizziness, Denies headache(s), Denies loss of vision, Denies memory loss, Denies numbness and Denies tingling Psych Denies anxiety, Denies behavioral changes, Denies depression, Denies memory loss and Denies panic attacks Endo Denies excessive sweating, Denies fatigue, Denies flushing, Denies polydipsia and Denies polyuria Jevon/Lymph Denies easy bleeding and Denies easy bruising Aller/Immun Denies wheezing Physical exam (Primary Care) Vital Signs: Last Vital Signs Pulse 65 08/10/23 10:22 Resp 17 08/10/23 10:22 BP 140/82 H 08/10/23 10:22 Pulse Ox 97 08/10/23 10:22 Oxygen Delivery Method Room Air 08/10/23 10:22 BMI result Body Mass Index 36.9 BMI Assessment/Plan discussion: High Tobacco/Smoking Status: Tobacco use Status Tobacco use date assessed 08/10/23 08/10/23 10:30 Patient Tobacco Use Status Never used Tobacco 08/10/23 10:24 Tobacco use type Cigarette 08/10/23 10:24 e-Cigarette/Vaping Use Never Used 08/10/23 10:24 PHQ-9: PHQ-9 Score PHQ-9: Total score 0 08/10/23 11:34 Depression Screening Interpretation: Negative Thrive Assessment: Date of Thrive Assessment Date Thrive assessed 08/10/23 08/10/23 10:30 Currently or been in a relationship where the following occur: no concerns reported Const Other: Obese General: healthy appearing, no acute distress, alert and awake Nutritional Appearance: well nourished Orientation/consciousness: oriented to person, oriented to place and oriented to time HENMT Head: Yes normocephalic Ears: TM's normal bilaterally General nose exam: Normal nasal mucous membranes and turbinates present Face and sinus: No sinus tenderness Mouth: Normal oral and palatal mucosa present and tongue normal Teeth and gingiva: dentition normal and gingiva normal Throat: Yes posterior oropharynx normal, Yes tonsils normal and Yes uvula midline Eyes Conjunctivae: conjunctivae normal Sclerae: sclerae normal Pupils: Equal, round and reactive pupils present EOM: EOMs intact bilaterally Direct Ophthalmoscopy: No no photophobia Neck Neck: Yes no lymphadenopathy and Yes no JVD Thyroid: Thyroid normal Carotids: no bruits Chest Chest palpation & inspection: no tenderness Resp Effort & Inspection: normal respiratory effort and not tachypneic Auscultation: no crackles, no rales, no rhonchi and no wheezes Cardio Jugular venous distension: no JVD Rate: regular rate Rhythm: regular rhythm Heart sounds: no murmurs and normal S1 and S2 Bruits: no carotid bruits Peripheral pulses: Peripheral pulses 2+ throughout GI Inspection: Yes normal to inspection, No abdominal wall ecchymosis and No visible herniation Palpation (GI): Soft to palpation, nontender, no hepatomegaly and no spleno megaly Auscultation: normal bowel sounds General: Yes no CVA tenderness Back/Spine/Pelvis Back: no CVA tenderness and No back tenderness Cervical Spine: cervical ROM normal Thoracic/Lumbar Spine: thoracic and lumbar spine normal to inspection, straight leg raise negative bilaterally, No thoraco-lumbar ROM limited and No lumbar spinal tenderness Skin General skin exam: no rashes or lesions noted and dry skin Lesions: no lesions Rashes: no rashes Wounds: no wounds Neuro General: oriented to person, oriented to place and oriented to time Cranial nerves: Yes Equal, round and reactive pupils present Cognition (Neuro): normal cognition Speech: No Abnormal speech present Gait exam (Neuro): Normal gait present Motor exam (neuro): no tremor noted Extrem Right upper extremity: full ROM Left upper extremity: full ROM Right lower extremity: full ROM; no edema Left lower extremity: full ROM; no edema Psych Appearance: grossly normal Mental Status: mental status grossly normal Speech and movement: Normal speech and movement present Affect: normal affect Attitude: cooperative Thought process: Normal thought process present Immunizations pneumoc 20-ruperto conj-dip cr(PF) 0.5 mL IM syringe Performing Provider: Mathew Fuller PA-C [facility] Administered by: ROSALES Whitlock on 08/10/23 11:34 Dose Route Admin Location Dispensed Lot Number Expiration Date NDC Ordnance Keeper 0.5 mL IM Left Deltoid 0.5 mL [id number] 08/31/24 6226-7980-26 [employer] VIS Given Date VIS Provided VIS Publication Date 08/10/23 Single Vaccine 21 Eligibility Eligibility Date Funding Source Not [facility] Eligible 08/10/23 Private Assessment and Plan Assessment & Plan (1) Annual physical exam: Code(s): Z00.00 - Encounter for general adult medical examination without abnormal findings (2) HTN (hypertension): Code(s): I10 - Essential (primary) hypertension Qualifiers: Hypertension type: primary hypertension Qualified Code(s): I10 - Essential (primary) hypertension Plan: Blood pressure acceptable today in office will continue current dose of amlodipine with goal blood pressure be below 140/90 (3) Hypothyroidism: Code(s): E03.9 - Hypothyroidism, unspecified Qualifiers: Hypothyroidism type: unspecified Qualified Code(s): E03.9 - Hypothyroidism, unspecified Plan: Patient continues on levothyroxine 88 mcg. TSH has been stable. Patient has lost weight since last office visit due to dietary changes. (4) Lumbar disc disease with radiculopathy: Code(s): M51.16 - Intervertebral disc disorders with radiculopathy, lumbar region Plan: Patient is status post lumbar disc surgery and has significant improvement in her pain and lumbar radiculopathy. (5) Obese: Code(s): E66.9 - Obesity, unspecified Qualifiers: Body mass index: BMI 36.0-36.9 Obesity classification: adult class 2 (BMI 35 - 39.9) Obesity type: due to excess calories Serious obesity comorbidity presence: without serious comorbidity Qualified Code(s): E66.09 - Other obesity due to excess calories; Z68.36 - Body mass index [BMI] 36.0-36.9, adult Plan: Patient does understand her BMI is over 30 and has been working on dietary modifications and being more physically active to lose weight. Has lost a few lb since last office visit and I congratulated her on this. She is interested in starting GLP 1 for weight loss. (6) Asthma: Code(s): J45.909 - Unspecified asthma, uncomplicated Qualifiers: Asthma complication type: uncomplicated Asthma persistence: persistent Asthma severity: mild Qualified Code(s): J45.30 - Mild persistent asthma, uncomplicated Plan: She reports her asthma symptoms have been more frequent and evident over the fall and winter. Will try to step up therapy with a maintenance inhaler. She will be purchasing a nebulizer to do nebulizer treatments at home. (7) TRAVIS (obstructive sleep apnea): Code(s): G47.33 - Obstructive sleep apnea (adult) (pediatric) Plan: STOP BANG questionnaire- high-risk for obstructive sleep apnea (8) Witnessed apneic spells: Code(s): R06.81 - Apnea, not elsewhere classified (9) HLD (hyperlipidemia): Code(s): E78.5 - Hyperlipidemia, unspecified Qualifiers: Hyperlipidemia type: mixed hyperlipidemia Qualified Code(s): E78.2 - Mixed hyperlipidemia Plan: Patient's most recent lipid panel showing borderline high total cholesterol. Will work on low-cholesterol diet. Anticipate better control over cholesterol with weight loss. Orders: Orders RT home sleep study Today E78.5 - Hyperlipidemia, unspecified, G47.33 - Obstructive sleep apnea (adult) (pediatric) Microalbumin, Random (w Creat) Today E78.5 - Hyperlipidemia, unspecified, I10 - Essential (primary) hypertension Complete Blood Count no Diff Today E78.5 - Hyperlipidemia, unspecified, J45.30 - Mild persistent asthma, uncomplicated TSH reflex Free T4 Today E03.9 - Hypothyroidism, unspecified, E78.5 - Hype rlipidemia, unspecified Lipid Panel Today E78.5 - Hyperlipidemia, unspecified, I10 - Essential (primary) hypertension Pneumococcal 20 Immunization Today J45.30 - Mild persistent asthma, uncomplicated, Z23 - Encounter for immunization Medications: New fluticasone propion-salmeterol 45-21 mcg/actuation (Advair HFA) 2 puffs inhalation BID 30 days 12 grams 2RF J45.30 - Mild persistent asthma, uncomplicated albuterol sulfate 2.5 mg (3 mL) inhalation Q6H 30 days PRN 90 mL 0RF shortness of breath or wheezing J45.30 - Mild persistent asthma, uncomplicated semaglutide (weight loss) (Wegovy) administer weeks 1 through 4 of therapy 0.25 mg (0.5 mL) subcut QWEEK 4 weeks 2 mL 0RF E66.09 - Other obesity due to excess calories, Z68.36 - Body mass index [BMI] 36.0-36.9, adult Coding Level of Care Code Est Pt Prev Care 40-64y(33792) Diagnoses Annual physical exam Z00.00 Primary hypertension I10 Hypertension type: primary hypertension Hypothyroidism, unspecified type E03.9 Hypothyroidism type: unspecified Lumbar disc disease with radiculopathy M51.16 Class 2 obesity due to excess calories without serious comorbidity with body mass index (BMI) of 36.0 to 36.9 in adult E66.09; Z68.36 Body mass index: BMI 36.0-36.9 Obesity classification: adult class 2 (BMI 35 - 39.9) Obesity type: due to excess calories Serious obesity comorbidity presence: without serious comorbidity Mild persistent asthma without complication J45.30 Asthma complication type: uncomplicated Asthma persistence: persistent Asthma severity: mild TRAVIS (obstructive sleep apnea) G47.33 Witnessed apneic spells R06.81 Mixed hyperlipidemia E78.2 Hyperlipidemia type: mixed hyperlipidemia Additional Codes LOIS-7 Assessment Billing - LOIS-7 Assessment Tool: LOIS-7 Assessment [id number] ([id number])
== END 2023-08-10 12:00 | disposition home or self-care (01) ==
PROVIDERS: Visit Provider Physician Assistant
DX: Z00.00 Encounter for general adult medical examination without abnormal findings (principal); I10 Essential (primary) hypertension; E03.9 Hypothyroidism, unspecified; M51.16 Intervertebral disc disorders with radiculopathy, lumbar region; E66.09 Other obesity due to excess calories; Z68.36 Body mass index [BMI] 36.0-36.9, adult; J45.30 Mild persistent asthma, uncomplicated; G47.33 Obstructive sleep apnea (adult) (pediatric); R06.81 Apnea, not elsewhere classified; E78.2 Mixed hyperlipidemia; Z23 Encounter for immunization
CPT/HCPCS: 90471; 90677; 99396

== ENCOUNTER → 2023-10-05 20:30 | Outpatient (REF) | payer BC, SELFPAY | LOC: HO.SL 20:30 | PROVIDERS: PCP Physician Assistant; Visit Provider Physician Assistant | DX: G47.33 Obstructive sleep apnea (adult) (pediatric) (principal) | CPT/HCPCS: 95810 ==

== ENCOUNTER → 2023-10-05 22:08 | Outpatient (BNV) | payer BC, SELFPAY | PROVIDERS: PCP Physician Assistant; Visit Provider Psychiatry & Neurology Neurology | DX: R40.0 Somnolence (principal) | CPT/HCPCS: 95810 ==

== ENCOUNTER 2023-12-28 07:30 | Outpatient (REF) | payer BC, SELFPAY ==
[2024-01-04 01:39] LABS: HPV mRNA E6/E7 rflx Not Detected (Not Detected)
== END 2023-12-28 07:31 | disposition home or self-care (01) ==
LOC: HO.LNP 07:30
PROVIDERS: PCP Physician Assistant; Visit Provider Obstetrics & Gynecology
DX: Z01.419 Encounter for gynecological examination (general) (routine) without abnormal findings (principal)
CPT/HCPCS: 87624; 88142

== ENCOUNTER 2023-12-28 07:30 | Outpatient (AMB) | payer BC, SELFPAY ==
--- NOTE | 2023-12-28 07:38 | MHC.OFFVIS ---
Vital Signs 12/28/23 07:39 Height 5 ft Weight 185 lb BMI 36.1 BP 136/80 Intake Visit Reasons: New patient Annual Intake Note: no concerns Security Monitor Required: No Information Interpreted: non-clinical & clinical Back Up Machine Operator: Back Up Machine Operator Present ([employer] FLOWERS) Accompanied by: Self / Same As Patient Allergies lisinopril Allergy (Severe, Verified 12/28/23 07:45) Hives Post menopausal: Yes HPI Comments Details: Presenting for annual exam. No complaints. Last Pap/HPV was many years ago Last Mammogram was BI-RADS 2 in 08/22 No previous screening Colonoscopy PFSH Medical History Peripheral vascular disease of lower extremity Blood clot in vein Arthritis Numbness Impaired glucose metabolism Obesity Thyroid disease Anemia PVD (peripheral vascular disease) Asthma HTN (hypertension) Surgical History History of back surgery Hx of vein stripping Hx of bilateral breast reduction surgery Family History Mother Creutzfeldt Missael disease Diabetes HTN (hypertension) Maternal Aunt Breast cancer Social History Household Members Other:: female partner ,son Housing: House Are you a primary memory care program director to a significant other at home: No Do you presently have visiting nurse or other home services: No Alcohol intake: current Alcohol intake frequency: does not drink Patient Tobacco Use Status: Never used Tobacco Tobacco use type: Cigarette e-Cigarette/Vaping Use: Never Used Second Hand Smoke Exposure: No service: No Current occupational status: employed 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 Sexual orientation: Lesbian/Winter/Homosexual Gender identity: Female Cognitive needs: No Hearing needs: No Vision needs: Yes Female Reproductive History Menstrual Total pregnancies: 0 Date of last pap smear: 08/25/22 Review of Systems Const All systems reviewed & are unremarkable except as noted in HPI and below Card Reports as per HPI Resp Reports as per HPI GI Reports as per HPI and Reports no additional complaints Reports as per HPI Physical Exam Vital Signs: Last Vital Signs BP 136/80 12/28/23 07:39 BMI result Body Mass Index 36.1 Const General: cooperative, healthy appearing and comfortable Chest Chest palpation & inspection: normal inspection of the chest and normal palpation of entire chest wall Breast/axilla inspection: normal inspection of the breasts and normal inspection of the axillae Breast/axilla palpation: normal palpation of the breasts, normal palpation of the axillae and no axillary lymphadenopathy Resp Effort & Inspection: normal respiratory effort Auscultation: clear to auscultation bilaterally Percussion: percussion normal Cardio Palpation: normal PMI Rate: regular rate Rhythm: regular rhythm Heart sounds: no murmurs and no rubs Peripheral pulses: Peripheral pulses 2+ throughout GI Inspection: Yes normal to inspection Palpation (GI): Soft to palpation, nontender, no guarding, not rigid and No hepatosplenomegaly present Percussion: Yes normal to percussion Auscultation: normal bowel sounds Rectal Exam - Female: deferred General: Yes bladder normal to palpation External Female Exam: No lesion Speculum Exam - Vagina: normal appearance of the vagina, normal palpation, normal vaginal discharge and not erythematous Speculum Exam - Cervix: normal appearance of the cervix and normal palpation Bimanual exam- vagina & uterus: normal bimanual exam, normal palpation, uterine size normal, bladder normal to palpation, consistency normal and normal palpation Bimanual Exam- Adnexa, other: normal adnexae, no masses and no tenderness Assessment & Plan Assessment & Plan (1) Well woman exam: Code(s): Z01.419 - Encounter for gynecological examination (general) (routine) without abnormal findings Category: Medical Plan: Co testing done. Counseled the patient about the recommended dietary allowance of 1200 mg of Calcium & 600 IU of vitamin D. Mammogram ordered. The patient was offered to be referred to GI for screening colonoscopy, would like to discuss it with her PCP . The patient was instructed to perform monthly self-breast exams and schedule annual exam in a year. All questions answered and the patient verbalized understanding. Orders: Orders MM tomosynthesis screening BI Today Z12.31 - Encounter for screening mammogram for malignant neoplasm of breast Coding Level of Care Code New Pt Prev Care 40-64y(80079) Diagnoses Well woman exam Z01.419
[2023-12-28 07:39] VITALS: BP 136/80; BMI 36.1
== END 2023-12-28 08:04 | disposition home or self-care (01) ==
PROVIDERS: PCP Physician Assistant; Visit Provider Obstetrics & Gynecology
DX: Z01.419 Encounter for gynecological examination (general) (routine) without abnormal findings (principal)
CPT/HCPCS: 99386

== ENCOUNTER 2024-02-08 12:07 | Outpatient (REF) | payer BC, SELFPAY ==
--- NOTE | ~2024-02-08 | MM_ITS ---
EXAMINATION: MM SCREENING DIGITAL BREAST TOMOSYNTHESIS, BILATERAL CLINICAL INFORMATION: Screening. Asymptomatic. Patient is status post bilateral breast reduction. COMPARISON: Mammography: This study is compared with prior exams dating back to 2012. TECHNIQUE: Digital breast tomosynthesis is performed in both the craniocaudal and mediolateral oblique views along with computer-aided detection (CAD). Synthesized 2D images are generated from the tomosynthesis. FINDINGS: There are scattered areas of fibroglandular density (ACR BI-RADS breast composition Category b). There are no significant masses, abnormal calcifications, or other abnormalities. Post reduction changes are present. MM/MM tomosynthesis screening BI IMPRESSION: No mammographic evidence of malignancy. ASSESSMENT: BI-RADS BI-RADS 2 - Benign Findings RECOMMENDATION: Routine annual mammography screening. 1 year F/U This examination should not preclude the clinical evaluation of a suspicious palpable abnormality. This patient's information was entered into a reminder system with a target due date for their next mammogram.
== END 2024-02-08 12:08 | disposition home or self-care (01) ==
LOC: HO.MAMMO 12:07
PROVIDERS: PCP Physician Assistant; Visit Provider Obstetrics & Gynecology
DX: Z12.31 Encounter for screening mammogram for malignant neoplasm of breast (principal)
CPT/HCPCS: 77063; 77067

== ENCOUNTER → 2024-02-08 12:30 | Outpatient (BNV) | payer BC, SELFPAY | PROVIDERS: PCP Physician Assistant; Visit Provider Radiology Diagnostic Radiology | DX: Z12.31 Encounter for screening mammogram for malignant neoplasm of breast (principal) | CPT/HCPCS: 77063; 77067 ==

== ENCOUNTER 2024-03-20 12:52 | Outpatient (AMB) | payer BC, SELFPAY ==
[2024-03-20 13:07] VITALS: BP 148/86; PULSE 64; O2SAT 98; BMI 35.8
--- NOTE | 2024-03-20 13:07 | A.OFFPC_ITS ---
Vital Signs 03/20/24 13:07 Height 5 ft Weight 183 lb 6 oz BMI 35.8 BP 148/86 H Blood Pressure Location Lt brachial Position Sitting Pulse 64 Pulse Source Pulse Oximeter Pulse Oximetry (%) 98 Oxygen Delivery Method Room Air Intake Visit Reasons: weight check/Wegovy Childcare Administrator Required: No Accompanied by: Self / Same As Patient Allergies lisinopril Allergy (Severe, Verified 03/20/24 13:17) Hives Medication List - Last Reconciled 03/20/24 by Mathew Fuller PA-C albuterol sulfate 90 mcg/actuation 1 puff PO QID PRN albuterol sulfate 2.5 mg (3 mL) inhalation Q6H PRN 30 days amlodipine 5 mg PO DAILY 90 days cyanocobalamin (vitamin B-12) 1,000 mcg IM Q4W 4 weeks epinephrine (EpiPen 2-Allan) 0.3 mg (0.3 mL) IM Q4H PRN 30 days fluticasone propion-salmeterol 45-21 mcg/actuation (Advair HFA) 2 puffs inhalation BID 30 days levothyroxine 88 mcg PO DAILY nebulizers (AeroEclipse II Nebulizer) As directed needle (disp) 22 G (CareTouch Hypodermic Needle) As directed semaglutide (weight loss) (Wegovy) 0.5 mg (0.5 mL) subcut QWEEK 90 days Tobacco use date assessed: 08/10/23 Dental Screening Dental Screen Date: 08/10/23 HPI weight check/Wegovy HPI Details Patient is a 58-year-old female here today for follow-up visit. Patient has a past medical history significant for hypertension, obesity, impaired glucose metabolism, asthma, hypothyroidism .. Obesity: Has recently started the 0.25 mg Wegovy and felt she is able to lose weight. Previous to starting [place] P1 she was losing weight with diet and exercise. She reports she is feeling well and would like to increase her dose of Wegovy to 0.5 mg for more weight loss benefit. She also has comorbidities of obstructive sleep apnea and hypertension. Her goal weight is 150 lb CHRONIC MEDICAL CONDITIONS--> .. Asthma: She has been noting worsening asthma symptoms as of late. She does reports she would like to be evaluated for obstructive sleep apnea as she had been told she has apneic episodes and loud snoring. She does have high risk factors for obstructive sleep apnea. She is interested in starting a nebulizer for p.r.n. use Lumbar disc disease: Did have lumbar disc surgery in May of 2023. She reports significant improvement in her pain and lower extremity radiculopathy. She is happy with the results.? .. Pernicious anemia:? Has been started on IM injection B12 and feels her energy is much improved. .. Obesity:? Has lost a small amount of weight since last office visit Patient does understand her BMI is over 30 and will work on being more physically active and adapting to better eating habits to reduce her weight PLAN: Interested in starting GLP 1 for weight loss, thus will start Wegovy .. Hypertension:? Blood pressure slightly elevated today in office..? Amlodipine 5 mg. We anticipate better blood pressure control with weight loss. [facility] Medical History Peripheral vascular disease of lower extremity Blood clot in vein Arthritis Numbness Impaired glucose metabolism Obesity Thyroid disease Anemia PVD (peripheral vascular disease) Asthma HTN (hypertension) Surgical History History of back surgery Hx of vein stripping Hx of bilateral breast reduction surgery Family History Mother Creutzfeldt Missael disease Diabetes HTN (hypertension) Maternal Aunt Breast cancer Social History Household Members Other:: female partner ,son Housing: House Are you a primary resident care coordinator to a significant other at home: No Do you presently have visiting nurse or other home services: No Alcohol intake: current Alcohol intake frequency: does not drink Patient Tobacco Use Status: Never used Tobacco Tobacco use type: Cigarette e-Cigarette/Vaping Use: Never Used Second Hand Smoke Exposure: No service: No Current occupational status: employed 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 Gabriel Acevedo, Jaky Rapp, Pieter King and colleagues, with an educational pattie from [employer]. Review of Systems Const Denies headache(s) Eyes Denies loss of vision ENT Denies vertigo, Denies dizziness, Denies headache(s) and Denies sore throat Card Denies chest pain, Denies leg edema and Denies lightheadedness Resp Denies cough, Denies hemoptysis and Denies wheezing GI Denies abdominal pain, Denies melena, Denies constipation, Denies diarrhea and Denies vomiting Denies urinary frequency, Denies dysuria and Denies urinary urgency Musc Denies arthralgias, Denies joint swelling, Denies numbness and Denies tingling Neuro Denies Abnormal speech present, Denies behavioral changes, Denies vertigo, Denies dizziness, Denies headache(s), Denies loss of vision, Denies memory loss, Denies numbness and Denies tingling Psych Denies anxiety, Denies behavioral changes, Denies depression, Denies memory loss and Denies panic attacks Jevon/Lymph Denies easy bleeding and Denies easy bruising Aller/Immun Denies wheezing Physical exam (Primary Care) Vital Signs: Last Vital Signs Pulse 64 03/20/24 13:07 BP 148/86 H 03/20/24 13:07 Pulse Ox 98 03/20/24 13:07 Oxygen Delivery Method Room Air 03/20/24 13:07 BMI result Body Mass Index 35.8 BMI Assessment/Plan discussion: High BMI High, discussed plan: lifestyle, weight reduction, dietary and physical activity Tobacco/Smoking Status: Tobacco use Status Tobacco use date assessed 08/10/23 03/20/24 13:17 Patient Tobacco Use Status Never used Tobacco 03/20/24 13:17 Tobacco use type Cigarette 03/20/24 13:17 e-Cigarette/Vaping Use Never Used 03/20/24 13:17 Thrive Assessment: Date of Thrive Assessment Date Thrive assessed 08/10/23 03/20/24 13:17 Const General: healthy appearing, no acute distress, alert and awake Nutritional Appearance: well nourished Orientation/consciousness: oriented to person, oriented to place and oriented to time HENMT Ears: TM's normal bilaterally General nose exam: Normal nasal mucous membranes and turbinates present Eyes Conjunctivae: conjunctivae normal Sclerae: sclerae normal Pupils: Equal, round and reactive pupils present Neck Neck: Yes no lymphadenopathy and Yes no JVD Thyroid: Thyroid normal Carotids: no bruits Resp Effort & Inspection: normal respiratory effort and not tachypneic Auscultation: no crackles, no rales, no rhonchi and no wheezes Cardio Rate: regular rate Rhythm: regular rhythm Heart sounds: no murmurs and normal S1 and S2 GI Palpation (GI): Soft to palpation, nontender, no hepatomegaly and no splenomegaly Auscultation: normal bowel sounds Skin General skin exam: no rashes or lesions noted and dry skin Neuro General: oriented to person, oriented to place and oriented to time Cranial nerves: Yes Equal, round and reactive pupils present Speech: No Abnormal speech present Gait exam (Neuro): Normal gait present Motor exam (neuro): no tremor noted Extrem Right upper extremity: full ROM Left upper extremity: full ROM Right lower extremity: full ROM; no edema Left lower extremity: full ROM; no edema Psych Mental Status: mental status grossly normal Speech and movement: Normal speech and movement present Affect: normal affect Attitude: cooperative Thought process: Normal thought process present Assessment and Plan Assessment & Plan (1) Obese: Code(s): E66.9 - Obesity, unspecified Qualifiers: Obesity type: due to excess calories Obesity classification: adult class 2 (BMI 35 - 39.9) Serious obesity comorbidity presence: without serious comorbidity Body mass index: BMI 36.0-36.9 Qualified Code(s): E66.09 - Other obesity due to excess calories; Z68.36 - Body mass index [BMI] 36.0-36.9, adult Plan: PATIENT HAS NOTED BENEFIT FROM [place] P1. HAS LOST WEIGHT. SHE DOES HAVE COMORBIDITIES SUCH OBSTRUCTIVE SLEEP APNEA AND HYPERTENSION. SHE WOULD LIKE TO INCREASE HER DOSE OF GLP 1 FOR ADDED BENEFIT OF ADDITIONAL WEIGHT LOSS. (2) Trigger finger of right hand: Code(s): M65.30 - Trigger finger, unspecified finger Qualifiers: Trigger finger location: middle finger Qualified Code(s): M65.331 - Trigger finger, right middle finger Plan: She reports she has noted right middle finger trigger finger over the last several months. She reports it is not that bad will like to hold off on a therapy or cortisone injections at this time. Orders: Orders TSH reflex Free T4 Today E03.9 - Hypothyroidism, unspecified Lipid Panel Today E78.2 - Mixed hyperlipidemia Comprehensive [place]. Panel Fast Today E78.2 - Mixed hyperlipidemia Vitamin B12 and Folate Today D51.0 - Vitamin B12 deficiency anemia due to intrinsic factor deficiency, E53.8 - Deficiency of other specified B group vitamins Complete Blood Count no Diff Today D51.0 - Vitamin B12 deficiency anemia due to intrinsic factor deficiency Medications: Changed From semaglutide (weight loss) (Wegovy) 0.5 mg (0.5 mL) subcut QWEEK 90 days 6.5 mL 1RF E66.09 - Other obesity due to excess calories, G47.33 - Obstructive sleep apnea (adult) (pediatric), I10 - Essential (primary) hypertension, Z68.36 - Body mass index [BMI] 36.0-36.9, adult To semaglutide (weight loss) (Wegovy) 0.5 mg (0.5 mL) subcut QWEEK 4 weeks 2 mL 0RF E66.09 - Other obesity due to excess calories, G47.33 - Obstructive sleep apnea (adult) (pediatric), I10 - Essential (primary) hypertension, Z68.36 - Body mass index [BMI] 36.0-36.9, adult Coding Level of Care Code Est Pt Level 4 (49447) Diagnoses Class 2 obesity due to excess calories without serious comorbidity with body mass index (BMI) of 36.0 to 36.9 in adult E66.09; Z68.36 Obesity type: due to excess calories Obesity classification: adult class 2 (BMI 35 - 39.9) Serious obesity comorbidity presence: without serious comorbidity Body mass index: BMI 36.0-36.9 Trigger middle finger of right hand M65.331 Trigger finger location: middle finger
== END 2024-03-20 13:43 | disposition home or self-care (01) ==
PROVIDERS: PCP Physician Assistant; Visit Provider Physician Assistant
DX: E66.09 Other obesity due to excess calories (principal); Z68.36 Body mass index [BMI] 36.0-36.9, adult; M65.331 Trigger finger, right middle finger
CPT/HCPCS: 99214

== ENCOUNTER 2024-09-03 09:31 | Outpatient (REF) | payer BC, SELFPAY ==
[2024-09-03 09:54] LABS: Hematocrit 40.2 % (37.0-47.0); Hemoglobin 13.5 g/dl (12.0-16.0); Mean Corpuscular HGB Conc 33.6 g/dl (31.0-35.0); Mean Corpuscular Hemoglobin 28.8 pg (27.0-33.0); Mean Corpuscular Volume 85.9 fL (80.0-98.0); Mean Platelet Volume 10.1 fL (9.4-12.3); Platelet Count 284 X10*3/uL (160-400); Red Blood Count 4.68 X10*6/uL (4.20-5.50); Red Cell Distribution Width 13.3 % (11.0-16.0); White Blood Count 5.5 X10*3/uL (4.8-10.8)
--- OUTSIDE RECORDS SUMMARY | 2024-09-03 10:05 | XMS_ITS | Clinical Summary ---
Author Organization [facility] ity Address [address] [place] [address] Care Team Providers Care Pre Sales Technical Consultant Name Role Phone Unavailable Primary Care Provider Unavailabl e Social History Tobacco Use Types Packs/Day Years Used Date Smoking Tobacco: Never Assessed Sex and Gender Information Value Date Recorded Sex Assigned at Not on file Gender Identity Not on file Sexual Orientation Not on file Plan of Treatment Health Maintenance Due Date Last Done Comments Breast Cancer Screening 1965 DTaP,Tdap,and Td Vaccines (1 - Tdap) 12/08/1983 Hepatitis B Vaccines (1 of 3 - 19+ 3-dose series) 12/08/1983 Cervical Cancer Screening: P ap Smear 1985 Zoster Vaccines (1 of 2) 2014 Colorectal Cancer Screening: Colonoscopy 08/29/2023 Depression Screening 08/29/2023 HIV Screening 08/29/2023 Hepatitis C Screening 08/29/2023 Social Influencers of Health Screening 08/29/2023 COVID-19 Vaccine ( - 2023-2 5 season) 2024 Influenza Vaccine (#1) 2024 RSV Immunization Patients 60 + Years Old (1 - 1-dose 75+ series) 12/08/2039 HIB Vaccines Aged Out No longer eligi ble based on patient's age to complete this topic HPV Vaccines Aged Out No longer eligi ble based on patient's age to complete this topic Hepatitis A Vaccines Aged Out No long er eligible based on patient's age to complete this topic IPV Vaccines Aged Out No longer eligi ble based on patient's age to complete this topic MMR Vaccines Aged Out No longer eligi ble based on patient's age to complete this topic Meningococcal ACWY Vaccine Aged Out N o longer eligible based on patient's age to complete this topic Pneumococcal Vaccine: Pediat rics (0 to 5 Years) and At-Risk Patients (6 to 64 Years) Aged Out No longer eligible b ased on patient's age to complete this topic RSV Immunization Patients Un fredy 20 months Aged Out No longer eligible b ased on patient's age to complete this topic Varicella Vaccines Aged Out No longer eligible based on patient's age to complete this topic
[2024-09-03 10:40] LABS: Alanine Aminotransferase 15 U/L (0-31); Alkaline Phosphatase 76 U/L (39-117); Anion Gap 18 (12-20); Aspartate Amino Transferase 19 U/L (5-31); Bilirubin Total 0.4 mg/dL (0.0-1.0); Blood Urea Nitrogen 11 mg/dL (9-16); Calcium 8.8 mg/dL (8.4-10.2); Carbon Dioxide 28 mmol/L (22-29); Chloride 106 mmol/L (96-108); Cholesterol 224 mg/dL (<200); Estimated Glomerular Filt Rate > 60; Glucose Fasting 84 mg/dL (60-99); HDL Cholesterol 39 mg/dL (>40); LDL Cholesterol Calculated 169 mg/dL (<100); Potassium 4.6 mmol/L (3.3-5.1); Sodium 147 mmol/L (135-145); Total Protein 7.4 g/dL (6.5-8.0); Triglycerides 84 mg/dL (<150)
[2024-09-03 10:57] LABS: TSH reflex Free T4 0.44 uIU/mL (0.32-4.0)
[2024-09-03 11:09] LABS: Folate 12.9 ng/mL (> or = 4.0); Vitamin B12 486 pg/mL (200-900)
== END 2024-09-03 09:32 | disposition home or self-care (01) ==
LOC: HO.LAB 09:31
PROVIDERS: PCP Physician Assistant; Visit Provider Physician Assistant
DX: D51.0 Vitamin B12 deficiency anemia due to intrinsic factor deficiency (principal); E78.2 Mixed hyperlipidemia; E03.9 Hypothyroidism, unspecified
CPT/HCPCS: 36415; 80053; 80061; 82607; 82746; 84443; 85027

== ENCOUNTER 2024-09-26 11:19 | Outpatient (AMB) | payer BC, SELFPAY ==
--- NOTE | 2024-09-26 11:48 | A.OFFPC_ITS ---
Vital Signs 09/26/24 12:01 Height 5 ft Weight 153 lb BMI 29.9 BP 132/84 Blood Pressure Location Lt brachial Position Sitting Pulse 64 Pulse Source Pulse Oximeter Temp 97.1 F Temp Source Temporal Artery Scan Pulse Oximetry (%) 99 Oxygen Delivery Method Room Air Intake Visit Reasons: PE Intake Note: Patient is here today for a physical. 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 Accompanied by: Self / Same As Patient Allergies lisinopril Allergy (Severe, Verified 09/26/24 12:19) Hives Medication List - Last Reconciled 09/26/24 by Mathew Fuller PA-C albuterol sulfate 90 mcg/actuation 1 puff PO QID PRN albuterol sulfate 2.5 mg (3 mL) inhalation Q6H PRN 30 days amlodipine 5 mg PO DAILY 90 days cyanocobalamin (vitamin B-12) 1,000 mcg IM Q4W 4 weeks epinephrine (EpiPen 2-Allan) 0.3 mg (0.3 mL) IM Q4H PRN 30 days fluticasone propion-salmeterol 45-21 mcg/actuation (Advair HFA) 2 puffs inhalation BID 30 days levothyroxine 88 mcg PO DAILY nebulizers (AeroEclipse II Nebulizer) As directed needle (disp) 22 G (CareTouch Hypodermic Needle) As directed semaglutide (weight loss) (Wegovy) 1 mg (0.5 mL) subcut QWEEK 4 weeks semaglutide (weight loss) (Wegovy) 1.7 mg subcut QWEEK Tobacco use date assessed: 09/26/24 Dental Screening Dental Screen Date: 09/26/24 Did you have a dental visit in the last 12 months?: Yes Did you have a dental problem in the last 6 months where you did not have access to dental care?: No Was dental information given to patient?: Patient has dentist HPI PE HPI Details Patient is a 58-year-old female here today for routine annual physical Patient has a past medical history significant for hypertension, obesity, impa ired glucose metabolism, asthma, hypothyroidism . Concerns--> patient reports sinus pressure and bilateral ear congestion and pain last week. She feels he is may have a sinus infection. .. Obesity: Has been started on Wegovy and up titrate to maximal dose of 2.4 mg. Has lost significant amount of weight. Starting weight-- > 183 lb Today's weight at 153 lb with BMI of 29.9. Has lost more than 5% of her total body mass Recent labs showing improved sugar, anemia TSH testing. Patient feels physically much better. CHRONIC MEDICAL CONDITIONS--> .. Asthma: Patient reports her asthma is fairly well controlled with only p.r.n. use of her albuterol inhaler. Lumbar disc disease: Did have lumbar disc surgery in May of 2023. She reports significant improvement in her pain and lower extremity radiculopathy. She is happy with the results.? .. Pernicious anemia:? Has been started on IM injection B12 and feels her energy is much improved. .. Hypertension:? Patient's blood pressure acceptable today in office. Will continue her current dose of amlodipine 5 mg. We anticipate better blood pressure control with weight loss. Colonoscopy: Has Cologuard at home, has yet to have completed VAccine: UTD with COVID vaccine, declines flu , UTD PCV . 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 [facility]- Dr Gandhi [facility] Medical History Peripheral vascular disease of lower extremity Blood clot in vein Arthritis Numbness Impaired glucose metabolism Obesity Thyroid disease Anemia PVD (peripheral vascular disease) Asthma HTN (hypertension) Surgical History History of back surgery Hx of vein stripping Hx of bilateral breast reduction surgery Family History Mother Creutzfeldt Missael disease Diabetes HTN (hypertension) Maternal Aunt Breast cancer Social History (Updated 09/26/24 @ 12:23 by Mathew Fuller PA-C) Household Members Other:: female partner ,son Housing: House Are you a primary furnace caretaker to a significant other at home: No Do you presently have visiting nurse or other home services: No Alcohol intake: current Alcohol intake frequency: holidays/special occasions only Patient Tobacco Use Status: Never used Tobacco Tobacco use type: Cigarette e-Cigarette/Vaping Use: Never Used Second Hand Smoke Exposure: No service: No Current occupational status: employed 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 1. Little interest or pleasure in doing things: not at all 2. Feeling down, depressed, or hopeless: not at all 3. Trouble falling or staying asleep, or sleeping too much: not at all 4. Feeling tired or having little energy: not at all 5. Poor appetite or overeating: not at all 6. Feeling bad about yourself - or that you are a failure or have let yourself or your family down: not at all 7. Trouble concentrating on things, such as reading the newspaper or watching television: not at all 8. Moving or speaking so slowly that other people could have noticed. Or the opposite - being so fidgety or restless that you have been moving around a lot more than usual: not at all 9. Thoughts that you would be better off or of hurting yourself in some way: not at all Total score: 0 Depression Screening Interpretation: Negative Depression Screening Done: Yes 10481 - PHQ-9 Billing: Yes Source: Developed by Drs. Gabriel Acevedo, Jaky Rapp, Piteer King and colleagues, with an educational pattie from [employer]. Thrive Questionnaire Date Thrive assessed: 09/26/24 I am a: Patient What is your living situation today?: I have a steady place to live Within the past 12 months, did the food you bought not last and you didn't have the money to get more?: Never true Within the past 12 months, did you worry whether your food would run out before you got money to buy more?: Never true Do you have trouble paying for medicines?: No Do you have trouble getting transportation to medical appointments?: No Do you have trouble paying your heating and electricity bill?: No Do you have trouble taking care of your child, family member or friend?: No Do you have trouble with day-to-day activities such as bathing, preparing meals, shopping, managing finances, etc.?: No Are you currently unemployed and looking for a job?: No Are you interested in more education?: No Please select the resources that you would like help with: None Currently or been in a relationship where the following occur: No concerns reported THRIVE Score: 0 AUDIT C Alcohol Use Questionnaire (AUDIT-C) 1. How often do you have a drink containing alcohol?: Never 3. How often do you have six or more drinks on one occasion?: Never Total Score: 0 LOIS-7 AMB Questionnaire LOIS-7 Date LOIS - 7 assessed: 09/26/24 Feeling nervous, anxious, or on edge: 0 = Not at all Not being able to stop or control worryin = Not at all Worrying too much about different things: 0 = Not at all Trouble relaxin = Not at all Being so restless that it is hard to sit still: 0 = Not at all Becoming easily annoyed or irritable: 0 = Not at all Feeling afraid as if something awful might happen: 0 = Not at all Total LOIS-7 score (0-4 normal; 5-9 mild; 10-14 moderate; 15-21 severe): 0 Source: Developed by Drs. Gabriel Acevedo, Jaky Rapp, Pieter King and colleagues, with an educational pattie from [employer]. LOIS-7 Assessment Billing LOIS-7 Assessment Tool: LOIS-7 Assessment 10644 Review of Systems Const Denies body aches, Denies chills, Denies excessive sweating, Denies fatigue, Denies fever(s) and Denies headache(s) Eyes Denies blurry vision ENT Denies dysphagia, Denies vertigo, Denies dizziness, Denies headache(s), Denies hearing loss and Denies tinnitus Card Denies chest pain, Denies chest pain with activity, Denies syncope, Denies irregular heart rhythm and Denies dyspnea Resp Denies chest congestion, Denies cough, Denies hemoptysis, Denies dyspnea and Denies wheezing GI Denies abdominal pain, Denies melena, Denies hematochezia, Denies coffee ground emesis, Denies dysphagia, Denies diarrhea, Denies nausea and Denies vomiting Denies urinary frequency, Denies dysuria, Denies urinary hesitancy and Denies urinary urgency Musc Denies arthralgias, Denies limited range of motion, Denies muscle cramps and Denies muscle weakness Skin/Breast Denies rash and Denies skin ulcer Neuro Denies Abnormal speech present, Denies confusion, Denies vertigo, Denies dizziness, Denies syncope, Denies headache(s), Denies memory loss and Denies seizure-like activity Psych Denies anxiety, Denies confusion, Denies depression, Denies memory loss, Denies panic attacks and Denies paranoia Endo Denies excessive sweating, Denies fatigue, Denies flushing, Denies polydipsia and Denies polyuria Aller/Immun Denies wheezing Physical exam (Primary Care) Vital Signs: Last Vital Signs Temp 97.1 F 09/26/24 12:01 Pulse 64 09/26/24 12:01 BP 132/84 09/26/24 12:01 Pulse Ox 99 09/26/24 12:01 Oxygen Delivery Method Room Air 09/26/24 12:01 BMI result Body Mass Index 29.9 Tobacco/Smoking Status: Tobacco use Status Tobacco use date assessed 09/26/24 09/26/24 12:06 Patient Tobacco Use Status Never used Tobacco 09/26/24 12:23 Tobacco use type Cigarette 09/26/24 12:23 e-Cigarette/Vaping Use Never Used 09/26/24 12:23 PHQ-9: PHQ-9 Score PHQ-9: Total score 0 09/26/24 12:21 Depression Screening Interpretation: Negative Thrive Assessment: Date of Thrive Assessment Date Thrive assessed 09/26/24 09/26/24 12:06 Currently or been in a relationship where the following occur: No concerns reported Const General: cooperative, comfortable, no acute distress, alert and awake; No confusion Orientation/consciousness: oriented to person, oriented to place, patient oriented x3 and No confusion HENMT Head: Yes normocephalic Ears: external ears normal and TM's normal bilaterally Face and sinus: No sinus tenderness Mouth: Normal oral and palatal mucosa present and tongue normal Teeth and gingiva: dentition normal and gingiva normal Throat: Yes posterior oropharynx normal, Yes tonsils normal and Yes uvula midline Eyes Conjunctivae: conjunctivae normal Sclerae: sclerae normal Pupils: Equal, round and reactive pupils present EOM: EOMs intact bilaterally Direct Ophthalmoscopy: No no photophobia Neck Neck: Yes no lymphadenopathy, No tender and Yes no JVD Thyroid: Thyroid normal Carotids: no bruits Chest Chest palpation & inspection: no tenderness Resp Effort & Inspection: normal respiratory effort, no audible wheezes, not labored and no stridor Auscultation: no crackles, no rales, no rhonchi and no wheezes Cardio Jugular venous distension: no JVD Rate: regular rate, not bradycardic and not tachycardic Rhythm: regular rhythm Bruits: no carotid bruits Peripheral pulses: Peripheral pulses 2+ throughout GI Inspection: Yes normal to inspection, No abdominal wall ecchymosis and No visible herniation Palpation (GI): Soft to palpation, nontender, no guarding, not rigid and No hepatosplenomegaly present Auscultation: normoactive bowel sounds General: Yes no CVA tenderness Back/Spine/Pelvis Back: no CVA tenderness and No back tenderness Cervical Spine: cervical ROM normal Thoracic/Lumbar Spine: thoracic and lumbar spine normal to inspection, straight leg raise negative bilaterally, No thoraco-lumbar ROM limited and No lumbar spinal tenderness Skin Lesions: no lesions Rashes: no rashes Wounds: no wounds Neuro General: oriented to person, oriented to place, patient oriented x3, CN's II-XI intact bilaterally and No confusion Cranial nerves: Yes Equal, round and reactive pupils present and Yes Normal accommodation reflex present Cognition (Neuro): normal cognition Speech: No Abnormal speech present Gait exam (Neuro): Normal gait present Motor exam (neuro): 5/5 motor strength present throughout Extrem Right upper extremity: full ROM; no cyanosis Left upper extremity: full ROM; no cyanosis Right lower extremity: no edema Left lower extremity: no edema Psych Appearance: grossly normal Mental Status: mental status grossly normal Affect: normal affect Attitude: cooperative Thought process: Normal thought process present Coding Level of Care Code Est Pt Prev Care 40-64y(96063) Diagnoses Annual physical exam Z00.00 Mixed hyperlipidemia E78.2 Hyperlipidemia type: mixed hyperlipidemia Primary hypertension I10 Hypertension type: primary hypertension Hypothyroidism, unspecified type E03.9 Hypothyroidism type: unspecified Class 1 drug-induced obesity with serious comorbidity and body mass index (BMI) of 30.0 to 30.9 in adult E66.811; E66.1; Z68.30 Body mass index: BMI 30.0-30.9 Serious obesity comorbidity presence: with serious comorbidity Acute non-recurrent frontal sinusitis J01.10 Chronicity: acute Recurrence: non-recurrent Sinusitis location: frontal Colon cancer screening Z12.11 Additional Codes LOIS-7 Assessment Billing - LOIS-7 Assessment Tool: LOIS-7 Assessment 81504 ([id number]) PHQ-9 - 85288 - PHQ-9 Billing: Yes ([id number]) Assessment & Plan Assessment & Plan (1) Annual physical exam: Code(s): Z00.00 - Encounter for general adult medical examination without abnormal findings Category: Medical Plan: As per HPI (2) HLD (hyperlipidemia): Code(s): E78.5 - Hyperlipidemia, unspecified Category: Medical Qualifiers: Hyperlipidemia type: mixed hyperlipidemia Qualified Code(s): E78.2 - Mixed hyperlipidemia Plan: Most recent lipid panel continues to show borderline high cholesterol and LDL above 160. She does admit to a family history of high cholesterol. She follows a good diet and has been more physically active since losing weight. He she is willing to start low-dose statin therapy to help reduce her cardiovascular risk. Goal LDL is to be below 130, goal total cholesterol to be below 200 (3) HTN (hypertension): Code(s): I10 - Essential (primary) hypertension Category: Medical Qualifiers: Hypertension type: primary hypertension Qualified Code(s): I10 - Essential (primary) hypertension Plan: Patient's blood pressure acceptable today in office. Will continue current dose of amlodipine 5 mg with goal blood pressure to remain below 140/90 (4) Hypothyroidism: Code(s): E03.9 - Hypothyroidism, unspecified Category: Medical Qualifiers: Hypothyroidism type: unspecified Qualified Code(s): E03.9 - Hypothyroidism, unspecified Plan: Patient's most recent TSH stable. Has lost significant amount of weight since starting GLP 1 Will continue her current dose of levothyroxine 88 mcg. 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 Has lost more than 5% of her total body mass. She would like to start titrating Wegovy dose back down to 1.7 mg weekly and see if she can maintain weight loss. (6) Sinusitis: Code(s): J32.9 - Chronic sinusitis, unspecified Category: Medical Qualifiers: Chronicity: acute Recurrence: non-recurrent Sinusitis location: frontal Qualified Code(s): J01.10 - Acute frontal sinusitis, unspecified Plan: Will supply patient with antibiotic for possible sinus infection. (7) Colon cancer screening: Code(s): Z12.11 - Encounter for screening for malignant neoplasm of colon Category: Medical Plan: Patient willing to do Cologuard Orders: Orders Lipid Panel Today E78.2 - Mixed hyperlipidemia TSH reflex Free T4 Today E03.9 - Hypothyroidism, unspecified Comprehensive [place]. Panel Fast Today E78.2 - Mixed hyperlipidemia Vitamin B12 and Folate Today D51.0 - Vitamin B12 deficiency anemia due to intrinsic factor deficiency, E53.8 - Deficiency of other specified B group vitamins Referrals Cologuard Test Z12.11 - Encounter for screening for malignant neoplasm of colon Medications: New amoxicillin 500 mg PO Q8H 7 days 21 caps 0RF J01.10 - Acute frontal sinusitis, unspecified simvastatin 10 mg PO DAILY 90 days 90 tabs 1RF E78.2 - Mixed hyperlipidemia Changed From semaglutide (weight loss) (Wegovy) 1.7 mg subcut QWEEK E66.09 - Other obesity due to excess calories, E78.2 - Mixed hyperlipidemia, G47.33 - Obstructive sleep apnea (adult) (pediatric), Z68.36 - Body mass index [BMI] 36.0-36.9, adult To semaglutide (weight loss) (Wegovy) 1.7 mg (0.75 mL) subcut QWEEK 4 weeks 3 mL 1RF E66.09 - Other obesity due to excess calories, E78.2 - Mixed hyperlipidemia, G47.33 - Obstructive sleep apnea (adult) (pediatric), Z68.36 - Body mass index [BMI] 36.0-36.9, adult Refilled cyanocobalamin (vitamin B-12) 1,000 mcg IM Q4W 4 weeks 1 mL 4RF D51.0 - Vitamin B12 deficiency anemia due to intrinsic factor deficiency
[2024-09-26 12:01] VITALS: BP 132/84; PULSE 64; TEMP 36.2; O2SAT 99; BMI 29.9
--- OUTSIDE RECORDS SUMMARY | 2024-09-26 13:42 | XMS_ITS | Clinical Summary ---
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 Role Phone Unavailable Primary Care Provider Unavailabl e Social History Tobacco Use Types Packs/Day Years Used Date Smoking Tobacco: Never Assessed Comments Unknown Sex and Gender Information Value Date Recorded Sex Assigned at Not on file Legal Sex Female 8:30 AM EST Gender Identity Not on file Sexual Orientation Not on file Plan of Treatment Health Maintenance Due Date Last Done Comments Breast Cancer Screening 1965 DTaP,Tdap,and Td Vaccines (1 - Tdap) 12/08/1983 Hepatitis B Vaccines (1 of 3 - 19+ 3-dose series) 12/08/1983 Cervical Cancer Screening: P ap Smear 1985 Pneumococcal Vaccine: 50+ Ye ars (1 of 1 - PCV) 2014 Zoster Vaccines (1 of 2) 2014 Colorectal [...] patient's age to complete this topic Meningococcal B Vacine Aged Out No lo nger eligible based on patient's age to complete [...]
== END 2024-09-26 12:42 | disposition home or self-care (01) ==
PROVIDERS: PCP Physician Assistant; Visit Provider Physician Assistant
DX: Z00.00 Encounter for general adult medical examination without abnormal findings (principal); E78.2 Mixed hyperlipidemia; I10 Essential (primary) hypertension; E03.9 Hypothyroidism, unspecified; E66.811 Obesity, class 1; E66.1 Drug-induced obesity; Z68.30 Body mass index [BMI] 30.0-30.9, adult; J01.10 Acute frontal sinusitis, unspecified; Z12.11 Encounter for screening for malignant neoplasm of colon

== ENCOUNTER → 2024-09-26 11:19 | Outpatient (BNVA) | payer BC, SELFPAY | PROVIDERS: PCP Physician Assistant; Visit Provider Physician Assistant | DX: Z00.00 Encounter for general adult medical examination without abnormal findings (principal); E78.2 Mixed hyperlipidemia; I10 Essential (primary) hypertension; E03.9 Hypothyroidism, unspecified; E66.811 Obesity, class 1; E66.1 Drug-induced obesity; Z68.30 Body mass index [BMI] 30.0-30.9, adult; J01.10 Acute frontal sinusitis, unspecified; Z79.899 Other long term (current) drug therapy | CPT/HCPCS: 96127 ==

== ENCOUNTER 2025-02-13 12:23 | Outpatient (REF) | payer BC, SELFPAY ==
--- OUTSIDE RECORDS SUMMARY | 2025-02-13 12:53 | XMS_ITS | Clinical Summary ---
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 Role Phone Unavailable Primary Care [...] DTaP,Tdap,and Td Vaccines (1 - Tdap) 12/08/1983 Cervical Cancer Screening: P ap Smear 1985 Pneumococcal Vaccine: 50+ Ye ars (1 of 1 - PCV) 2014 Zoster Vaccines (1 of 2) 2014 Colorectal Cancer Screening: Colonoscopy 08/29/2023 Depression Screening 08/29/2023 HIV Screening 08/29/2023 Hepatitis C Screening 08/29/2023 Social Influencers of Health Screening 08/29/2023 COVID-19 Vaccine ( - 2023-2 5 season) 2024 Influenza Vaccine (#1) 2025 RSV Immunization Adult Patie nts (1 - 1-dose 75+ series) 12/08/2039 HIB Vaccines Aged Out No longer eligi ble based on patient's age to complete this topic HPV Vaccines Aged Out No longer eligi ble based on patient's age to complete this topic Hepatitis A Vaccines Aged Out No long er eligible based on patient's age to complete this topic Hepatitis B Vaccines Aged Out No long er eligible [...] age to complete this topic Meningococcal B Vaccine Aged Out No l onger eligible based on patient's age to complete this topic Pneumococcal Vaccine: Pediat rics (0 to 5 Years) and At-Risk Patients (6 to 49 Years) Aged Out No longer eligible b ased on patient's age to complete this topic RSV Immunization Patients Un fredy 20 months Aged Out No longer eligible b ased on patient's age to complete this topic Varicella Vaccines Aged Out No longer eligible based on patient's age to complete this topic
== END 2025-02-13 12:24 | disposition home or self-care (01) ==
LOC: HO.MAMMO 12:23
PROVIDERS: PCP Physician Assistant; Visit Provider Physician Assistant
DX: Z12.31 Encounter for screening mammogram for malignant neoplasm of breast (principal)
CPT/HCPCS: 77063; 77067

== ENCOUNTER → 2025-02-13 12:30 | Outpatient (BNV) | payer BC, SELFPAY | PROVIDERS: PCP Physician Assistant; Visit Provider Internal Medicine | DX: Z12.31 Encounter for screening mammogram for malignant neoplasm of breast (principal) | CPT/HCPCS: 77063; 77067 ==

== ENCOUNTER 2025-04-28 10:46 | Outpatient (AMB) | payer BC, SELFPAY ==
--- NOTE | 2025-04-28 10:56 | A.OFFPC_ITS ---
Vital Signs 04/28/25 10:57 Height 5 ft Weight 140 lb 6 oz BMI 27.4 BP 130/80 Blood Pressure Location Lt brachial Position Sitting Pulse 60 Pulse Source Pulse Oximeter Temp 97.3 F Temp Source Temporal Artery Scan Pulse Oximetry (%) 97 Oxygen Delivery Method Room Air Intake Visit Reasons: Follow Up Intake Note: Patient is here to follow up on TRAVIS, HLD, Asthma, LDD, HTN . 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: Not Required per policy Accompanied by: Self / Same As Patient Allergies lisinopril Allergy (Severe, Verified 04/28/25 11:25) Hives simvastatin Allergy (Intermediate, Verified 04/28/25 11:25) Hives Medication List - Last Reconciled 04/28/25 by Mathew Fuller PA-C albuterol sulfate 90 mcg/actuation 1 puff PO QID PRN albuterol sulfate 2.5 mg (3 mL) inhalation Q6H PRN 30 days amlodipine 2.5 mg PO DAILY 30 days cyanocobalamin (vitamin B-12) 1,000 mcg IM Q4W 4 weeks fluticasone propion-salmeterol 45-21 mcg/actuation (Advair HFA) 2 puffs inhalation BID 30 days levothyroxine 88 mcg PO DAILY nebulizers (AeroEclipse II Nebulizer) As directed needle (disp) 22 G (CareTouch Hypodermic Needle) As directed semaglutide (weight loss) (Wegovy) 1.7 mg (0.75 mL) subcut QWEEK 90 days Tobacco use date assessed: 04/28/25 Dental Screening Dental Screen Date: 09/26/24 HPI Follow Up HPI Details Patient is a 59-year-old female here today for follow up visit Patient has a past medical history significant for hypertension, obesity, impaired glucose metabolism, asthma, hypothyroidism . Concerns--> The patient reports lumbar radiculopathy, with cramping and discomfort in her leg, particularly after physical activity. She has undergone vein surgery and lumbar surgery in the past, which have not fully resolved her symptoms. The patient is considering pain management options, including nerve block procedures. .. History of Obesity: Has been started on Wegovy and up titrate to maximal dose of 2.4 mg. Has lost significant amount of weight. Starting weight-- > 183 lb Today's weight at 140 lb, BMI at 27 Has lost more than 5% of her total body mass Recent labs showing improved sugar, anemia TSH testing. Patient feels physically much better. Her goal weight is reported as 130 lb She is interested in continuing Wegovy 1.7 mg weekly has a maintenance dose .. Asthma: Patient reports her asthma is well controlled, has not had to use her albuterol inhaler in over a year. .? .. Pernicious anemia:? Has been started on IM injection B12 and feels her energy is much improved. .. Hypertension:? We have decreased her amlodipine dose to 2.5 mg and blood pressures seem to be well managed particularly with her weight loss secondary to her GLP 1 therapy. [facility] Medical History Peripheral vascular disease of lower extremity Blood clot in vein Arthritis Numbness Impaired glucose metabolism Obesity Thyroid disease Anemia PVD (peripheral vascular disease) Asthma HTN (hypertension) Surgical History History of back surgery Hx of vein stripping Hx of bilateral breast reduction surgery Family History Mother Creutzfeldt Missael disease Diabetes HTN (hypertension) Maternal Aunt Breast cancer Social History Household Members Other:: female partner ,son Housing: House Are you a primary physician assistant primary care to a significant other at home: No Do you presently have visiting nurse or other home services: No Alcohol intake: current Alcohol intake frequency: holidays/special occasions only Patient Tobacco Use Status: Never used Tobacco Tobacco use type: Cigarette e-Cigarette/Vaping Use: Never Used Second Hand Smoke Exposure: No service: No Current occupational status: employed 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 Sexual orientation: Lesbian/Winter/Homosexual Gender identity: Female Cognitive needs: No Hearing needs: No Vision needs: Yes Questionnaire Thrive Questionnaire Date Thrive assessed: 09/26/24 I am a: Patient What is your living situation today?: I have a steady place to live Within the past 12 months, did the food you bought not last and you didn't have the money to get more?: Never true Within the past 12 months, did you worry whether your food would run out before you got money to buy more?: Never true Do you have trouble paying for medicines?: No Do you have trouble getting transportation to medical appointments?: No Do you have trouble paying your heating and electricity bill?: No Do you have trouble taking care of your child, family member or friend?: No Do you have trouble with day-to-day activities such as bathing, preparing meals, shopping, managing finances, etc.?: No Are you currently unemployed and looking for a job?: No Are you interested in more education?: No Please select the resources that you would like help with: None Currently or been in a relationship where the following occur: No concerns reported THRIVE Score: 0 AUDIT C Alcohol Use Questionnaire (AUDIT-C) 3. How often do you have six or more drinks on one occasion?: Never Total Score: 0 LOIS-7 AMB Questionnaire LOIS-7 Date LOIS - 7 assessed: 09/26/24 Source: Developed by Drs. Gabriel Acevedo, Jaky Rapp, Pieter King and colleagues, with an educational pattie from [employer]. Review of Systems Const Denies headache(s) Eyes Denies loss of vision ENT Denies vertigo, Denies dizziness, Denies headache(s) and Denies sore throat Card Denies chest pain, Denies leg edema and Denies lightheadedness Resp Denies cough, Denies hemoptysis and Denies wheezing GI Denies abdominal pain, Denies melena, Denies constipation, Denies diarrhea and Denies vomiting Denies urinary frequency, Denies dysuria and Denies urinary urgency Musc Details: + LEFT LOWER EXTREMITY CRAMPING AT NIGHT Denies arthralgias, Denies joint swelling, Denies numbness and Denies tingling Neuro Denies Abnormal speech present, Denies behavioral changes, Denies vertigo, Denies dizziness, Denies headache(s), Denies loss of vision, Denies memory loss, Denies numbness and Denies tingling Psych Denies anxiety, Denies behavioral changes, Denies depression, Denies memory loss and Denies panic attacks Jevon/Lymph Denies easy bleeding and Denies easy bruising Aller/Immun Denies wheezing Physical exam (Primary Care) Vital Signs: Last Vital Signs Temp 97.3 F 04/28/25 10:57 Pulse 60 04/28/25 10:57 BP 130/80 04/28/25 10:57 Pulse Ox 97 04/28/25 10:57 Oxygen Delivery Method Room Air 04/28/25 10:57 BMI result Body Mass Index 27.4 Tobacco/Smoking Status: Tobacco use Status Tobacco use date assessed 04/28/25 04/28/25 11:01 Patient Tobacco Use Status Never used Tobacco 04/28/25 11:01 Tobacco use type Cigarette 04/28/25 11:01 e-Cigarette/Vaping Use Never Used 04/28/25 11:01 Thrive Assessment: Date of Thrive Assessment Date Thrive assessed 09/26/24 04/28/25 11:01 Currently or been in a relationship where the following occur: No concerns reported Const General: healthy appearing, no acute distress, alert and awake Nutritional Appearance: well nourished Orientation/consciousness: oriented to person, oriented to place and oriented to time HENMT Ears: TM's normal bilaterally General nose exam: Normal nasal mucous membranes and turbinates present Eyes Conjunctivae: conjunctivae normal Sclerae: sclerae normal Pupils: Equal, round and reactive pupils present Neck Neck: Yes no lymphadenopathy and Yes no JVD Thyroid: Thyroid normal Carotids: no bruits Resp Effort & Inspection: normal respiratory effort and not tachypneic Auscultation: no crackles, no rales, no rhonchi and no wheezes Cardio Rate: regular rate Rhythm: regular rhythm Heart sounds: no murmurs and normal S1 and S2 GI Palpation (GI): Soft to palpation, nontender, no hepatomegaly and no splenomegaly Auscultation: normal bowel sounds Skin General skin exam: no rashes or lesions noted and dry skin Neuro General: oriented to person, oriented to place and oriented to time Cranial nerves: Yes Equal, round and reactive pupils present Speech: No Abnormal speech present Gait exam (Neuro): Normal gait present Motor exam (neuro): no tremor noted Extrem Right upper extremity: full ROM Left upper extremity: full ROM Right lower extremity: full ROM; no edema Left lower extremity: full ROM; no edema Psych Mental Status: mental status grossly normal Speech and movement: Normal speech and movement present Affect: normal affect Attitude: cooperative Thought process: Normal thought process present Coding Level of Care Code Est Pt Level 4 (51860) Diagnoses Mixed hyperlipidemia E78.2 Hyperlipidemia type: mixed hyperlipidemia Primary hypertension I10 Hypertension type: primary hypertension Hypothyroidism, unspecified type E03.9 Hypothyroidism type: unspecified Class 1 drug-induced obesity with serious comorbidity and body mass index (BMI) of 30.0 to 30.9 in adult E66.811; E66.1; Z68.30 Body mass index: BMI 30.0-30.9 Serious obesity comorbidity presence: with serious comorbidity Lumbar radiculopathy M54.16 Assessment & Plan Assessment & Plan (1) HLD (hyperlipidemia): Code(s): E78.5 - Hyperlipidemia, unspecified Category: Medical Qualifiers: Hyperlipidemia type: mixed hyperlipidemia Qualified Code(s): E78.2 - Mixed hyperlipidemia Plan: Most recent lipid panel showing borderline high total cholesterol and LDL. Will recheck fasting lipid panel to ensure stable. She has been working on lifestyle and dietary modifications Goal LDL is to be below 130, goal total cholesterol to be below 200 (2) HTN (hypertension): Code(s): I10 - Essential (primary) hypertension Category: Medical Qualifiers: Hypertension type: primary hypertension Qualified Code(s): I10 - Essential (primary) hypertension Plan: Patient's blood pressure acceptable today in office. We have been able to reduce her amlodipine dose to 2.5 mg and blood pressures seem to be well managed. Goal blood pressures to remain below 140/90 (3) Hypothyroidism: Code(s): E03.9 - Hypothyroidism, unspecified Category: Medical Qualifiers: Hypothyroidism type: unspecified Qualified Code(s): E03.9 - Hypothyroidism, unspecified Plan: Patient's most recent TSH stable. Has lost significant amount of weight since starting GLP 1 Will continue her current dose of levothyroxine 88 mcg. 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 Has lost more than 5% of her total body mass. She would like to start titrating Wegovy dose back down to 1.7 mg weekly and see if she can maintain weight loss. (5) Lumbar radiculopathy: Code(s): M54.16 - Radiculopathy, lumbar region Category: Medical Plan: For her lumbar radiculopathy, the patient is considering pain management options, including nerve block procedures, and will use prescribed muscle relaxants as needed for cramping. Orders: Orders Complete Blood Count no Diff Today E66.1 - Drug-induced obesity, E66.811 - Obesity, class 1, Z68.30 - Body mass index [BMI] 30.0-30.9, adult Medications: New cyclobenzaprine 10 mg PO BEDTIME PRN 14 tabs 0RF muscle spasm 14 days M54.16 - Radiculopathy, lumbar region Changed From amlodipine 2.5 mg PO DAILY 30 days 30 tabs 1RF I10 - Essential (primary) hypertension To amlodipine 2.5 mg PO DAILY 90 tabs 1RF 90 days I10 - Essential (primary) hypertension
[2025-04-28 10:57] VITALS: BP 130/80; PULSE 60; TEMP 36.3; O2SAT 97; BMI 27.4
--- OUTSIDE RECORDS SUMMARY | 2025-04-28 12:19 | XMS_ITS | Clinical Summary ---
Author Organization [facility] ity Address [address] [place] [address] Care Team Providers Care Contract Associate Manager Name Role Phone Unavailable Primary Care Provider [...] 2) 2014 Colorectal Cancer Screening: Colonoscopy 08/29/2023 HIV Screening 08/29/2023 Hepatitis C Screening 08/29/2023 Social Influencers of Health Screening 08/29/2023 Depression Screening 07/31/2024 COVID-19 Vaccine ( - 2023-2 5 season) 2025 Influenza Vaccine (#1) 2025 RSV Immunization Adult [...]
== END 2025-04-28 12:33 | disposition home or self-care (01) ==
LOC: HO.HMCH 10:47
PROVIDERS: PCP Physician Assistant; Visit Provider Physician Assistant
DX: E78.2 Mixed hyperlipidemia (principal); I10 Essential (primary) hypertension; E03.9 Hypothyroidism, unspecified; E66.811 Obesity, class 1; E66.1 Drug-induced obesity; Z68.30 Body mass index [BMI] 30.0-30.9, adult; M54.16 Radiculopathy, lumbar region